=== PATIENT | female | born 1945 | race Caucasian/White ===

== ENCOUNTER 2018-12-29 08:57 | Inpatient (IN) ==
--- NOTE | 2018-12-29 09:56 | EKG Report ---
Test Performed on : 12/29/2018 09:47:07 AM Test Reason : new admission Blood Pressure : / mmHG Vent. Rate : 110 BPM Atrial Rate : 110 BPM P-R Int : 192 ms QRS Dur : 082 ms QT Int : 332 ms P-R-T Axes : 014 014 025 degrees QTc Int : 449 ms Sinus tachycardia. Anterior infarct , age undetermined Abnormal ECG No previous ECGs available Confirmed by Lobo Hameed MD ([id number]) on 12/31/2018 12:13:58 PM
--- NOTE | 2018-12-29 10:00 | Diag Imaging Result Doc PS360 ---
EXAM: CHEST-PORTABLE 12/29/2018 HISTORY: new admit TECHNIQUE: AP portable at 0951 COMMENT: The inspiration is suboptimal. There is a granuloma present in the lingula. No evidence of acute cardiac or pulmonary disease is present. There are no previous studies. IMPRESSION: No evidence of acute disease. Electronically signed by Bernardo Brennan 12/29/2018 9:58 AM
[2018-12-29 10:21] LABS: BASO# 0.05 X1000 (0.0-0.2); BASO% 0.3 % (0.0-0.8); EOS# 0.04 X1000 (0.0-0.7); EOS% 0.2 % (0.0-10.0); HEMATOCRIT 36.6 % (37.0-47.0); HEMOGLOBIN 12.4 g/dL (12.0-16.0); IMM GRAN# 0.31 X1000 (0.0-0.04); IMM GRAN% 1.7 % (0.0-0.5); LYMPH# 2.11 X1000 (1.2-3.4); LYMPH% 11.7 % (20.5-51.1); MCH 31.9 PG (27-31); MCHC 33.9 g/dL (33-37); MCV 94.1 FL (81-99); MONO# 1.07 X1000 (0.11-0.59); MPV 10.4 FL (7.4-10.4); NEUT# 14.39 X1000 (1.4-6.5); NEUT% 80.1 % (42.2-75.2); PLT 468 X1000 (130-400); RBC 3.89 XMIL (4.2-5.4); RDW 13.7 % (11.5-14.5); WBC 17.97 X1000 (4.8-10.8)
[2018-12-29 10:25] LABS: INR 0.99; PROTIME 13.8 Seconds (11.0-16.0)
[2018-12-29 10:26] LABS: PTT 26.7 Seconds (22.3-41.8)
[2018-12-29 11:03] LABS: ALB/GLOB RATIO 1.2; ALBUMIN 3.3 g/dL (3.5-5.0); CALCIUM 9.1 mg/dL (8.8-10.2); CREATININE 1.1 mg/dL (0.5-0.9); POTASSIUM 4.9 mmol/L (3.5-5.1); TOTAL BILIRUBIN 0.28 mg/dL (0.20-1.00); TOTAL PROTEIN 6.1 g/dL (6.3-8.3)
--- NOTE | 2018-12-29 12:33 | HEMO/ONC CONSULTATION ---
DATE: 12/29/2018 REASON FOR CONSULTATION: The patient is known to us in the clinic for management of gastric cancer. HISTORY OF PRESENT ILLNESS: The patient came to our clinic yesterday with complaints of severe weakness, severe nausea and no oral intake at all. She has recently had significant malignant ascites which a drain was placed. The patient was diagnosed recently with gastric cancer. She came to our clinic at the beginning of this month with abdominal pain for the last 6 to 8 weeks along with anorexia and worsening nausea. She has lost 18 pounds over the last several weeks. She is she presents with a CT scan from [facility]. She reported a mass in the stomach with noted. She saw Dr. Rahman for an EGD, which revealed a large fungating tumor occupying 50 to 75 percent of the circumference of the antrum. Biopsies were obtained and pathology revealed invasive adenocarcinoma, moderately to poorly differentiated intestinal type. She was also noted to have iron deficiency anemia and she has had 1 of 2 doses of IV iron on 12/25/2018. PAST MEDICAL HISTORY: Diabetes, hypertension, GERD, hypercholesterolemia, and gout. PAST SURGICAL HISTORY: Knee surgery. ALLERGIES: Codeine. MEDICATIONS: Omeprazole, aspirin, atorvastatin, hydrochlorothiazide, carvedilol, metformin, amlodipine, losartan, allopurinol, multivitamin, omega-3, arthritis pain relief and azelastine. SOCIAL HISTORY: She denies smoking or alcohol use. FAMILY HISTORY: Her mother had Alzheimer's. Her father had heart disease. REVIEW OF SYSTEMS: Positive for weight loss, fatigue, nausea, nocturia, and arthritis. All other review of systems negative unless mentioned in the HPI. PHYSICAL EXAMINATION: Vital Signs: Temperature 98.4 degrees, pulse rate 115, respiratory rate 22, blood pressure 155/89, O2 saturation 97% on room air. She is 5/10 abdominal pain. Eyes: Anicteric. Pupils are round, equal and symmetric. ENT: Oral mucosa normal. Cardiovascular: Normal S1, S2. No murmurs, gallops, or rubs appreciated. Respiratory: Chest clear to auscultation. Normal respiratory effort. Gastrointestinal: Abdomen is mildly distended with ascites, generally tender all over. Lymphatic: No lymphadenopathy noted. LABORATORY DATA AND DIAGNOSTICS: WBC 17.97, hemoglobin 12.4, hematocrit 36.6, platelet count 468,000. ANC 14.39. Creatinine 1.1. Chest x-ray shows no evidence of acute disease. EKG reveal sinus tachycardia. ASSESSMENT: 1. Metastatic gastric adenocarcinoma. 2. Iron deficiency anemia. 3. Malignant ascites. 4. Nausea. PLAN: The current plan is to admit the patient to the hospital to get her nausea and pain under control, to improve the patient's nutritional status and improve her deconditioning. Her nausea is most likely related to her mesenteric and omental metastasis or from increasing abdominal ascites. She does have drainage in place, continue to drain as instructed per Dr. Alaniz. We will continue to see her over the weekend. Dictated by WILFREDO Blanchard for Edmond Oh MD cc: Edmond Oh MD
[2018-12-29] MEDS: CLINIMIX E 4.25%-5% SOLUTION 1,000 ML IV SCH ×2 (12:55→22:21)
[2018-12-29] MEDS: HUMALOG SUBQ SCH ×3 (12:57→21:31)
[2018-12-29] MEDS: LOVENOX SUBQ SCH (15:55)
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
[2018-12-29 22:27] LABS: URINE SOURCE CLEAN CATCH
[2018-12-29 22:31] LABS: BILIRUBIN URINE NEGATIVE (NEGATIVE); BLOOD URINE NEGATIVE (NEGATIVE); COLOR YELLOW; GLUCOSE URINE NEGATIVE (NEGATIVE); KETONE URINE 10 mg/dL (NEGATIVE); LEUKOCYTES URINE NEGATIVE (NEGATIVE); NITRITE URINE NEGATIVE (NEGATIVE); PH URINE 5.5; PROTEIN URINE TRACE mg/dL (NEGATIVE); TURBIDITY URINE HAZY (CLEAR); UR EPITHELIAL CELLS <10 /HPF (<10); URINE BACTERIA NEGATIVE /HPF; URINE RBC <10 /HPF (<10); URINE WBC <10 /HPF (<10); UROBILINOGEN URINE NORMAL (NORMAL)
--- NOTE | 2018-12-29 23:20 | HISTORY AND PHYSICAL ---
ADDENDUM: Patient seen and examined by me [id number]. All the laboratory, vital signs and images were reviewed. This patient basically has been sent by Dr. Oh due to nausea and abdominal pain. She has a history of metastatic gastric adenocarcinoma and malignant ascites. She has a drain coming out from her abdomen. She has not been tolerating p.o. for the past couple of weeks, and she feels weak. I think yesterday she had a popsicle and today she was able to drink a little bit of fluid and Jell-O. We will continue to monitor this patient on the floor. Vital signs are stable, slightly tachycardic in the 100s. Her white blood cell count is elevated at 17.9, but I do not have any source of infection and she is not having fever or chills. She is completely alert and oriented x3. The plan is to try to control her pain. Her abdomen is soft. It is not tender right now and she is not having nausea or vomiting right now. Once this is controlled, probably we can go ahead and start giving her some ice chips and some fluid to see if she tolerates that. I had a conversation with the patient at the bedside. Her granddaughter also was there. We talked about the resuscitation status, and she decided to be a Full Code, so we will respect her wishes. cc: Alan Umanzor MD
[2018-12-30] MEDS: PHENERGAN PO PRN (01:27)
[2018-12-30] MEDS: NS 1,000 ML IV SCH ×2 (02:18→21:37)
[2018-12-30] MEDS ORDERED: MORPHINE IV ONE (05:31)
[2018-12-30 06:57] LABS: BASO% 0.2 % (0.0-0.8); EOS% 0.9 % (0.0-10.0); HEMATOCRIT 33.8 % (37.0-47.0); HEMOGLOBIN 11.5 g/dL (12.0-16.0); IMM GRAN% 2.3 % (0.0-0.5); LYMPH% 17.7 % (20.5-51.1); MCV 94.2 FL (81-99); MONO% 8.4 % (1.7-9.3); MPV 10.6 FL (7.4-10.4); NEUT# 12.58 X1000 (1.4-6.5); NEUT% 70.5 % (42.2-75.2); PLT 433 X1000 (130-400); RBC 3.59 XMIL (4.2-5.4); WBC 17.84 X1000 (4.8-10.8)
[2018-12-30 06:58] LABS: BASO# 0.04 X1000 (0.0-0.2); EOS# 0.16 X1000 (0.0-0.7); IMM GRAN# 0.41 X1000 (0.0-0.04); LYMPH# 3.15 X1000 (1.2-3.4)
[2018-12-30 07:13] LABS: HEMOGLOBIN A1C 5.3 % (4.8-6.0)
[2018-12-30 07:16] LABS: ESTIMATED GFR > 60
[2018-12-30 07:19] LABS: AGAP 12; ALB/GLOB RATIO 1.3; ALBUMIN 2.9 g/dL (3.5-5.0); ALKALINE PHOSPHATASE 62 U/L (32-104); BUN 52 mg/dL (8-22); CALCIUM 8.6 mg/dL (8.8-10.2); CHLORIDE 96 mmol/L (98-107); COSMO 281; CREATININE 0.9 mg/dL (0.5-0.9); GLUCOSE 137 mg/dL (70-104); POTASSIUM 4.4 mmol/L (3.5-5.1); SODIUM 132 mmol/L (136-145); TCO2 24 mmol/L (25-35); TOTAL BILIRUBIN 0.21 mg/dL (0.20-1.00); TOTAL PROTEIN 5.2 g/dL (6.3-8.3)
[2018-12-30 07:20] LABS: GOT 21 U/L (10-30); GPT 11 U/L (10-36)
[2018-12-30] MEDS: CLINIMIX E 4.25%-5% SOLUTION 1,000 ML IV SCH ×2 (09:21→19:01)
[2018-12-30] MEDS: LOVENOX SUBQ SCH (09:21)
[2018-12-30] MEDS: HUMALOG SUBQ SCH ×4 (09:26→21:37)
--- NOTE | 2018-12-30 10:21 | GENERAL SURGERY CONSULTATION ---
DATE: 12/29/2018 HISTORY OF PRESENT ILLNESS: This is a 73-year-old female patient Dr. Moraess and Dr. Rahman who was found to have metastatic gastric cancer. She has developed ascites, had a peritoneal drain placed, but she elected to undergo palliative chemotherapy. Unfortunately, she has had intolerance to oral intake, nausea, vomiting, although she continues to have bowel function and not obstructed noted on EGD. She denies any GI bleeding. MEDICAL HISTORY: Diabetes, hypertension, gastroesophageal reflux, hyperlipidemia, gout. SURGICAL HISTORY: She has had knee operation but no abdominal surgery. SOCIAL HISTORY: No tobacco, alcohol, or drugs. She has an attentive family. REVIEW OF SYSTEMS: Ten point negative. FAMILY HISTORY: Reviewed. Significant for coronary disease and Alzheimer's PHYSICAL EXAMINATION: Vital Signs: No fever. Pulse is in the low 100s. Blood pressure 126/81. Oxygen saturation is 94%. General: She is alert, no acute distress. HEENT: No scleral icterus. No cervical mass. Cardiovascular: Normal rate. Pulmonary: No increased work of breathing. Abdomen: Soft, nontender, nondistended. There is a right upper quadrant peritoneal drain. Psychiatric: Appropriate affect. Neurologic: No gross deficits. Peripheral vascular: No lower extremity edema. Lymphatic: No cervical, axillary or inguinal adenopathy. LABORATORY DATA: White count 17, hematocrit 36, creatinine is 1.1. Her albumin is 3.3. LFTs are normal. Glucose 130, potassium 4.9. ASSESSMENT AND PLAN: A 73-year-old female who has malnourishment related to intolerance of oral intake related to a gastric tumor. She does have omental nodules noted consistent with metastatic disease. She also had malignant ascites that was drained and has a drain in place. This is a CT- guided. Dr. Oh has asked me to discuss with the patient a feeding jejunostomy tube. We discussed the pros and cons of this. The risks and benefits including bleeding, infection, leak from the tube, malfunction and intolerance of tube feeds. She understands all this. We discussed port placement. We discussed risk of bleeding, infection, damage to surrounding structures including the vein and the artery or pneumothorax, malfunction of the catheter. She understands all this and does consent. She has peripheral nutrition going, we will hydrate her, correct her electrolytes and plan for jejunostomy feeding tube placement as well as port placement on Tuesday. cc: David Alaniz MD
[2018-12-30] MEDS: MORPHINE IV PRN (19:05)
--- NOTE | 2018-12-30 19:56 | PROGRESS NOTE ---
DATE: 12/30/2018 SUBJECTIVE: This patient is lying comfortably in bed. She is complaining of abdominal discomfort. She is tolerating a little bit of liquid. She is not complaining of nausea today. Surgery Department will place a feeding jejunostomy tube and Port-A-Cath this coming Tuesday. We will monitor. OBJECTIVE: Vital Signs: Temperature 97.5 degrees, pulse 117, respiratory rate 20, blood pressure 127/78, oxygen saturation 96% on room air. HEENT: Head normocephalic, no trauma. PERRLA. Neck: Supple. No JVD. No masses. Central trachea. Chest: Clear to auscultation. No wheezing. No rales. Abdomen: Soft, distended. Positive bowel sounds. Generalized tenderness to palpation. No signs of peritoneal irritation. She has a drain coming out from the right side. Neurological: The patient is alert and oriented x3. No focal deficits. LABORATORY: WBCs 17.8, hemoglobin 11.5, hematocrit 33.8, platelets 433. Sodium 132, potassium 4.4, chloride 96, bicarbonate 24, BUN 52, creatinine 0.9, glucose 137, calcium 8.6, albumin 2.9. ASSESSMENT AND PLAN: 1. Metastatic gastric adenocarcinoma. Will continue following the recommendations of the Hematology/Oncology Department. Will continue with same management. She seems to be a little bit better compared with yesterday. The plan is to put in a feeding jejunostomy tube and a Port-A-Cath this coming Tuesday. 2. Intractable nausea, vomiting and decreased appetite, likely due to her current condition, gastric cancer with metastasis. We anticipate a gastric jejunostomy tube this Tuesday, and the Port-A-Cath. 3. Anemia, better. Hematology-Oncology Department following. 4. Generalized weakness and physical deconditioning. Aware. We will start her working with physical therapy. 5. Hypertension, stable. 6. Diabetes. Continue with pattern blood sugars and sliding scale insulin. 7. Arthritis. She has been taken off her arthritic medication. 8. Hyperlipidemia. Continue with fish oil. 9. Gastroesophageal reflux disease. Aware Continue with same management. 10. History of kidney and bladder infections. She is not having any urinary complaints at this moment, but I will get a urine culture. cc: Alan Umanzor MD
--- NOTE | 2018-12-30 20:40 | GENERAL SURGERY PROGRESS NOTE ---
DATE: 12/30/2018 SUBJECTIVE: No issues. Pain is reasonably controlled. Low-grade tachycardia. No fevers. OBJECTIVE: Blood pressure 127/78. General: She is alert. Cardiovascular: Normal rate. Abdomen is soft, nontender, nondistended. LABORATORY DATA: White count remains elevated at 17. Hematocrit is down to 33. Creatinine is 0.9. ASSESSMENT AND PLAN: A 73-year-old female with metastatic gastric cancer, intolerance to oral intake. I have her on the schedule for jejunostomy tube and port placement on Tuesday. We will continue to follow her through the weekend. cc: David Alaniz MD
[2018-12-31] MEDS: MORPHINE IV PRN ×3 (00:22→21:20)
[2018-12-31] MEDS: NS 1,000 ML IV SCH (02:25)
[2018-12-31] MEDS: CLINIMIX E 4.25%-5% SOLUTION 1,000 ML IV SCH ×3 (02:25→22:49)
[2018-12-31] MEDS: HUMALOG SUBQ SCH ×4 (06:39→22:09)
[2018-12-31 06:42] LABS: BASO# 0.05 X1000 (0.0-0.2); BASO% 0.3 % (0.0-0.8); EOS% 1.1 % (0.0-10.0); HEMATOCRIT 35.9 % (37.0-47.0); HEMOGLOBIN 12.2 g/dL (12.0-16.0); IMM GRAN# 0.82 X1000 (0.0-0.04); IMM GRAN% 4.4 % (0.0-0.5); LYMPH% 17.2 % (20.5-51.1); MCH 31.9 PG (27-31); MCV 93.7 FL (81-99); MONO# 1.69 X1000 (0.11-0.59); MONO% 9.1 % (1.7-9.3); MPV 10.6 FL (7.4-10.4); NEUT# 12.63 X1000 (1.4-6.5); NEUT% 67.9 % (42.2-75.2); PLT 443 X1000 (130-400); RBC 3.83 XMIL (4.2-5.4); RDW 13.9 % (11.5-14.5); WBC 18.59 X1000 (4.8-10.8)
[2018-12-31 07:40] LABS: AGAP 15; BUN 51 mg/dL (8-22); CALCIUM 8.8 mg/dL (8.8-10.2); CHLORIDE 99 mmol/L (98-107); COSMO 285; CREATININE 0.7 mg/dL (0.5-0.9); ESTIMATED GFR > 60; GLUCOSE 112 mg/dL (70-104); SODIUM 135 mmol/L (136-145); TCO2 21 mmol/L (25-35)
[2018-12-31] MEDS: LOVENOX SUBQ SCH (11:22)
[2018-12-31] MEDS: ZOFRAN IV PRN ×2 (11:29→21:20)
--- NOTE | 2018-12-31 12:21 | PROGRESS NOTE ---
DATE: 12/31/2018 SUBJECTIVE: The patient is lying comfortably in bed. She is feeling better today. Hopefully tomorrow she will have a procedure done, a feeding jejunostomy tube and Port-A-Cath will be placed. OBJECTIVE: Vital Signs: Temperature 97.5 degrees, pulse 105, respiratory rate 20, blood pressure 143/83, oxygen saturation 97% on room air. HEENT: Head normocephalic, no trauma. PERRLA. Neck: Supple. No JVD. No masses. Central trachea. Chest: Clear to auscultation. No wheezing. No rales. Abdomen: Soft, distended, positive bowel sounds. Generalized tenderness to palpation. No signs of peritoneal irritation. She has a drain coming out from the right side. Neurological: The patient is alert. She is oriented x3. No focal deficits. LABORATORY: WBC 18.5, hemoglobin 12.2, hematocrit 35.9, platelets 443,000. Sodium 135, potassium 5, chloride 99, bicarbonate 21, BUN 51, creatinine 0.7 glucose 112, calcium 8.8. ASSESSMENT AND PLAN: 1. Metastatic gastric adenocarcinoma, we will continue following the recommendations of the hematology/oncology department, continue with the same management. Hopefully tomorrow she will go for surgery. We were trying to place a feeding jejunostomy tube and a Port-A-Cath. 2. Intractable nausea, vomiting and decreased appetite, likely due to her current condition, gastric cancer with metastasis. She is tolerating p.o. She is not having nausea today. No diarrhea either. 3. Anemia, better, hematology oncology department following. 4. Generalized weakness and physical deconditioning. Aware. Continue with the same management. Physical therapy has been consulted. 5. Arthritis this patient has been taking of her arthritic medications. 6. Hyperlipidemia continue with fish oil. 7. Diabetes, continue patterned blood sugar and sliding scale insulin. 8. Gastroesophageal reflux disease. Continue with the same management. 9. History of kidney and bladder infection. She is not having any urinary complaints at this moment and the urine culture is negative so far. cc: Alan Umanzor MD
--- NOTE | 2018-12-31 15:09 | GENERAL SURGERY PROGRESS NOTE ---
DATE: 12/31/2018 SUBJECTIVE: She is feeling better. No fevers. Her tachycardia has improved now down the 90s. Blood pressure been okay. General: She is alert. Abdomen: Soft. Integument: Is warm, dry. Cardiovascular: Normal rate. LAB: White counts remains stable. Hematocrit 35, creatinine 0.7. Urine culture is pending but urinalysis was clear. Chest x-ray showed no pneumonia. ASSESSMENT/PLAN: 73-year-old female metastatic gastric cancer and unable to tolerate p.o. I have her on schedule tomorrow for jejunostomy tube as well as port placement. Discussed extensively this with patient. She understands and consents. Will make her NPO at midnight, otherwise clear liquids as tolerated. cc: David Alaniz MD
--- NOTE | 2018-12-31 15:41 | HEMO/ONC PROGRESS NOTE ---
DATE: 12/31/2018 SUBJECTIVE: Patient reports that she is feeling a little bit stronger. She is currently on Clinimix and IV fluids. Her abdominal swelling is not getting any worse. She has seen Dr. Alaniz with plans for a Port-A-Cath and possibly J-tube on Tuesday. No other complaints today. OBJECTIVE: Patient is alert and oriented x 3. Vital Signs: Stable. Eyes: EOMI. PERRLA. Anicteric. Mucous membranes are mildly dry. Cardiac: Regular rate and rhythm. Normal S1, S2. Chest: Clear to auscultation. Abdomen: Slightly protuberant with minimal ascites. Extremities: No cyanosis or clubbing. Neurologic: Alert and oriented x 3. LABS: White count 17.8, hemoglobin 11.5, platelets 43,000. ANC 12.5, BUN 52, creatinine 0.9. LFTs are normal. ASSESSMENT: 1. Metastatic gastric adenocarcinoma. 2. Iron deficiency anemia, status post IV iron. 3. Malignant ascites. Status post drainage catheter placement. 4. Persistent nausea and weight loss. 5. DVT prophylaxis. PLAN: 1. Continue current management. Continue Clinimix. Hopefully, she will get a J-tube soon and we will change this to tube feeds. Continue nausea medicines around the clock. Once she gets her nutrition stronger, she would like to pursue chemotherapy. Physical therapy has been consulted. Out of bed t.i.d. 2. Leukocytosis and noncompliant. Her leukocytosis most likely reactive to her malignancy. No obvious evidence of infection at this time. No reason to give her any antibiotics. Simply continue to monitor. She is on cc: Edmond Oh MD [facility]
[2019-01-01] MEDS: PHENERGAN PO PRN (00:08)
[2019-01-01] MEDS: ZOFRAN IV PRN ×4 (05:24→21:46)
[2019-01-01] MEDS: MORPHINE IV PRN ×5 (05:24→21:46)
[2019-01-01] MEDS: HUMALOG SUBQ SCH ×4 (06:48→21:48)
[2019-01-01 07:10] LABS: BASO# 0.13 X1000 (0.0-0.2); BASO% 0.6 % (0.0-0.8); EOS# 0.06 X1000 (0.0-0.7); EOS% 0.3 % (0.0-10.0); HEMATOCRIT 36.3 % (37.0-47.0); HEMOGLOBIN 12.2 g/dL (12.0-16.0); IMM GRAN# 0.97 X1000 (0.0-0.04); IMM GRAN% 4.8 % (0.0-0.5); LYMPH# 2.82 X1000 (1.2-3.4); LYMPH% 13.8 % (20.5-51.1); MCH 32.3 PG (27-31); MCHC 33.6 g/dL (33-37); MONO# 1.63 X1000 (0.11-0.59); MPV 10.8 FL (7.4-10.4); NEUT# 14.77 X1000 (1.4-6.5); NEUT% 72.5 % (42.2-75.2); PLT 387 X1000 (130-400); RBC 3.78 XMIL (4.2-5.4); RDW 14.5 % (11.5-14.5); WBC 20.38 X1000 (4.8-10.8)
[2019-01-01 07:36] LABS: LYMPHS 14 % (21-51); MONO 9 % (1-9); SEGS 77 % (42-75)
[2019-01-01 07:39] LABS: AGAP 16; BUN 54 mg/dL (8-22); CHLORIDE 97 mmol/L (98-107); COSMO 273; CREATININE 0.9 mg/dL (0.5-0.9); ESTIMATED GFR > 60; GLUCOSE 149 mg/dL (70-104); POTASSIUM 6.3 mmol/L (3.5-5.1); SODIUM 127 mmol/L (136-145); TCO2 14 mmol/L (25-35)
[2019-01-01] MEDS ORDERED: CALCIUM GLUCONATE 4.65 MEQ in NS 50 ML IV ONE (07:45)
[2019-01-01] MEDS ORDERED: D50W SYRINGE IV ONE (07:45)
[2019-01-01] MEDS ORDERED: HUMULIN R IV ONE (07:45)
[2019-01-01] MEDS ORDERED: ALBUTEROL 0.5% INH CONC FOR HYPERKALEMIA INH ONE (07:46)
[2019-01-01 09:16] LABS: ESTIMATED GFR > 60
[2019-01-01 09:29] LABS: AGAP 15; BUN 53 mg/dL (8-22); CALCIUM 8.1 mg/dL (8.8-10.2); CHLORIDE 96 mmol/L (98-107); COSMO 274; CREATININE 0.8 mg/dL (0.5-0.9); GLUCOSE 143 mg/dL (70-104); SODIUM 128 mmol/L (136-145); TCO2 17 mmol/L (25-35)
[2019-01-01] MEDS: NS 1,000 ML IV SCH ×3 (09:48→18:03)
[2019-01-01] MEDS: LOVENOX SUBQ SCH (11:30)
[2019-01-01] MEDS: CLINIMIX E 4.25%-5% SOLUTION 1,000 ML IV SCH (11:31)
--- NOTE | 2019-01-01 12:20 | GENERAL SURGERY PROGRESS NOTE ---
DATE: 01/01/2019 SUBJECTIVE: No events overnight. Feeling okay. No fevers. Low-grade tachycardia which has been stable. OBJECTIVE: Blood pressure 105/76, oxygen saturation is 93%. In general, she is alert. Abdomen is soft. Integument is warm and dry. LABORATORIES: I have reviewed her laboratories which have just resulted. White count is up to 20, hematocrit is 36. Her potassium is 6.3 with creatinine 0.9. ASSESSMENT AND PLAN: 1. This is a 73-year-old female with nausea/vomiting related to metastatic gastric cancer. She wants to undergo palliative chemotherapy. As such, she needs enteral access as well as venous access. We have had extensive discussion regarding her risks of bleeding, infection, malfunction of both of these issues, perforation, and other cardiopulmonary complications. 2. I had her on the schedule for today, but given her hyperkalemia, we will need to correct this prior to surgery. 3. She had a persistent leukocytosis, although I do not see any source of infection based off of her clinical exam. 4. We will see how her electrolytes correct today and plan for surgery around lunchtime. cc: David Alaniz MD
--- NOTE | 2019-01-01 16:31 | PROGRESS NOTE ---
DATE: 01/01/2019 SUBJECTIVE: Patient is resting comfortably in bed. No big changes compared with yesterday, but her potassium level was high. She was scheduled today to get a feeding jejunostomy and a Port-A- Cath, but is going to be rescheduled because of this high potassium level. It has been normal for the past 3 days, but today is higher. It has been treated. We will repeat laboratory again at 2 p.m. It is pending at this moment. OBJECTIVE: Vital signs: Temperature 97.6 degrees, pulse 110, respiratory rate 18, blood pressure 151/88, oxygen saturation 97% on room air. HEENT: Head normocephalic, no trauma. PERRLA. Neck: Supple. No JVD. No masses. Central trachea. Chest: Clear to auscultation. No wheezing. No rales. Abdomen: Soft, distended. Positive bowel sounds. Generalized tenderness to palpation. No signs of peritoneal irritation. She has a drain coming out from the right side. Neurological: Alert and oriented x3. No focal deficits. LABORATORY: WBC 20.3, hemoglobin 12.2, hematocrit 36.3, platelets 387,000. Sodium 128, potassium 6, chloride 96, bicarbonate 17, BUN 53, creatinine 0.8, glucose 143, calcium 8.1. ASSESSMENT AND PLAN: 1. Metastatic gastric adenocarcinoma. We will continue to follow. We will continue following the recommendations of Hematology/Oncology department. Continue with same management. Hopefully tomorrow, we will get the feeding jejunostomy tube and the Port-A-Cath placed. 2. Intractable nausea, vomiting, and decreased appetite. Likely due to her current condition, gastric cancer with metastasis. She is tolerating some liquids, but she is having some nausea. 3. Anemia. Hematology/Oncology following the patient. 4. Generalized weakness and physical deconditioning. Aware. Continue with same management. 5. Hyperkalemia. Treated in the morning. Pending new results at this moment and also 8 p.m. 6. Arthritis. This patient has been taking medication for this, but it has been removed from her medications. 7. Hyperlipidemia. Continue fish oil. 8. Diabetes. Continue with pattern of blood sugar and sliding scale insulin. 9. Gastroesophageal reflux disease. Continue with the same management. 10. History of kidney and bladder infection. No urinary complaints at this moment, and the urine culture is negative. 11. Leukocytosis. I do not have any source of infection. I will probably discuss these with Hematology/Oncology department which is following this patient. cc: Alan Umanzor MD
[2019-01-01] MEDS ORDERED: KAYEXALATE PO ONE (17:11)
--- NOTE | 2019-01-01 18:00 | HEMO/ONC PROGRESS NOTE ---
DATE: 01/01/2019 HISTORY OF PRESENT ILLNESS/CHIEF COMPLAINT: The patient states she had a good weekend. She was significantly nauseated which has slowly been resolving. She states it is pretty mild today. She was scheduled to get a feeding jejunostomy and a Port-A-Cath today, but it has to be rescheduled due to her high potassium level. The patient had no other complaints other than nausea today. OBJECTIVE: Vital Signs: Temperature 97.8 degrees, pulse rate 114, respiratory rate 20, blood pressure 142/95, O2 saturation 97% on room air. She has 8/10 abdominal pain. Her urine culture over the weekend grew no growth. General: Elderly appearing female in no acute distress. Respiratory: Lungs are clear to auscultation. Normal respiratory effort. Abdomen: Soft, slightly distended. Positive bowel sounds. Tender to palpation. Abdominal gastric drain noted. Neurological: Alert and oriented x3. No focal deficits. LABORATORY DATA: WBC 20.38, hemoglobin 12.2, hematocrit 36.3, platelet count 387,000, ANC 14.77, potassium 6.3 at 6:30 a.m., 5.0 at 2 p.m. ASSESSMENT: 1. Metastatic gastric adenocarcinoma with intractable nausea and vomiting. 2. Iron deficiency anemia. 3. Malignant ascites. PLAN: Currently the patient is waiting on feeding jejunostomy and Port-A-Cath. It should be rescheduled soon as soon as her potassium level is corrected. We will contact dietitian regarding the potassium and her Clinimix as we believe that is where the high potassium was coming from. We are going to order 1 dose of Kayexalate to lower the potassium. We will continue to follow closely. Dictated by WILFREDO Blanchard for Edmond Oh MD cc: Edmond Oh MD [facility]
[2019-01-01 21:29] LABS: CALCIUM 8.1 mg/dL (8.8-10.2); POTASSIUM 5.6 mmol/L (3.5-5.1)
[2019-01-02] MEDS: ZOFRAN IV PRN ×4 (03:01→23:03)
[2019-01-02] MEDS: MORPHINE IV PRN ×4 (03:06→23:03)
[2019-01-02] MEDS: HUMALOG SUBQ SCH ×4 (07:07→21:35)
[2019-01-02] MEDS: NS 1,000 ML IV SCH (07:49)
[2019-01-02 07:59] LABS: BASO# 0.08 X1000 (0.0-0.2); BASO% 0.4 % (0.0-0.8); EOS# 0.02 X1000 (0.0-0.7); EOS% 0.1 % (0.0-10.0); HEMATOCRIT 36.7 % (37.0-47.0); HEMOGLOBIN 12.5 g/dL (12.0-16.0); IMM GRAN# 0.95 X1000 (0.0-0.04); IMM GRAN% 4.2 % (0.0-0.5); LYMPH# 2.62 X1000 (1.2-3.4); LYMPH% 11.7 % (20.5-51.1); MCH 31.5 PG (27-31); MCHC 34.1 g/dL (33-37); MCV 92.4 FL (81-99); MONO# 1.61 X1000 (0.11-0.59); MONO% 7.2 % (1.7-9.3); MPV 11.1 FL (7.4-10.4); NEUT# 17.18 X1000 (1.4-6.5); NEUT% 76.4 % (42.2-75.2); PLT 499 X1000 (130-400); RBC 3.97 XMIL (4.2-5.4); RDW 14.3 % (11.5-14.5); WBC 22.46 X1000 (4.8-10.8)
[2019-01-02 08:18] LABS: LYMPHS 4 % (21-51); MONO 8 % (1-9); SEGS 80 % (42-75)
[2019-01-02 08:21] LABS: CALCIUM 8.7 mg/dL (8.8-10.2); POTASSIUM 5.6 mmol/L (3.5-5.1)
[2019-01-02] MEDS ORDERED: KAYEXALATE PO ONE ×2 (08:31→12:03)
[2019-01-02] MEDS ORDERED: ALBUTEROL 0.5% INH CONC FOR HYPERKALEMIA INH ONE (09:12)
[2019-01-02] MEDS ORDERED: D50W SYRINGE IV ONE ×2 (09:13→16:05)
[2019-01-02] MEDS ORDERED: HUMULIN R IV ONE ×2 (09:13→16:04)
[2019-01-02] MEDS ORDERED: CALCIUM GLUCONATE 4.65 MEQ in NS 50 ML IV ONE (09:14)
[2019-01-02] MEDS: LOVENOX SUBQ SCH (12:18)
--- NOTE | 2019-01-02 13:34 | HEMO/ONC PROGRESS NOTE ---
DATE: 01/02/2019 HISTORY OF PRESENT ILLNESS/CHIEF COMPLAINT: The patient states she had a very good night. She is comfortable in bed. She is currently n.p.o. in hopes of going to surgery today for her jejunostomy and Port-A-Cath. Her potassium level is still pending at this time. She states her nausea is better than yesterday and that she feels slightly better than she did yesterday. She has no other complaints today. OBJECTIVE: Vital Signs: Temperature 97.9 degrees, pulse rate 115, respiratory rate 18, blood pressure 122/90, O2 saturation 95% on room air. She is in 5/10 abdominal pain. General: She is an ill-appearing, elderly female in no acute distress. Respiratory: Clear to auscultation. Normal respiratory effort. Cardiovascular: Normal S1, S2. No murmurs, rubs, or gallops appreciated. Abdomen: Soft, slightly distended. Tender to palpation. Drain noted on the right side with some bruising. Neurological: A and O x3. No focal motor deficits. Laboratory: WBCs 22.46, hemoglobin 12.5, hematocrit 36.7, platelet count 491,000, ANC 17.18. Sodium 129, potassium 5.6, creatinine 1.0. ASSESSMENT: 1. Metastatic gastric adenocarcinoma with intractable nausea and vomiting. 2. Iron deficiency anemia. 3. Malignant ascites. 4. Generalized weakness and physical deconditioning. 5. Hyperkalemia. PLAN: The patient continues to wait on the placement of a feeding jejunostomy tube, and Port-A-Cath per surgery. We are monitoring her potassium level until it is safe to do the operation. We added one more dose of Kayexalate to the patient this morning. We should redraw another potassium this afternoon to see if it has improved. The patient's abdominal malignant ascites is currently being drained per protocol per her abdominal drain. The patient is tolerating this well. It is not bothering her. She states her nausea is being controlled with medication. Continue to provide the patient with adequate nutrition and out of bed as tolerated. We continue to follow. Dictated by WILFREDO Blanchard for Edmond Oh MD cc: Edmond Oh MD [facility]
[2019-01-02 14:54] LABS: CALCIUM 8.6 mg/dL (8.8-10.2); POTASSIUM 5.7 mmol/L (3.5-5.1)
[2019-01-02] MEDS: 1/2 NS 1,000 ML IV SCH (15:32)
--- NOTE | 2019-01-02 16:26 | PROGRESS NOTE ---
DATE: 01/02/2019 SUBJECTIVE: The patient resting comfortably in bed. She had an episode of vomiting at around 3 a.m. today. Her potassium level is again elevated even though the Clinimix has been stopped yesterday, I will switch the NS to half NS I will treat the high potassium, pending lab work that has been already done at 2 p.m. OBJECTIVE: Vital Signs: Temperature 97.8 degrees, pulse 105, respiratory rate 16, blood pressure 110/76 oxygen saturation 96 on room air. HEENT: Head normocephalic. No trauma. PERRLA. Neck: Supple. No JVD. No masses. Central trachea. Chest: Clear to auscultation. No wheezing. No rales. Abdomen: Soft, a little bit distended. Positive bowel sounds. Generalized tenderness to palpation. No signs of peritoneal irritation. She has a drain coming out from the right side of the abdomen. Neurological: Alert and oriented x3. No focal deficit but generalized weakness. LABORATORY: WBC 22.4, hemoglobin 12.5, hematocrit 36.7, platelets 499,000. Sodium 129, potassium 5.6, chloride 96, bicarbonate 21, BUN 51, creatinine 1, glucose 125, calcium 8.7. ASSESSMENT AND PLAN: 1. Metastatic gastric adenocarcinoma, we will continue to follow. The plan is to put a Port-A- Cath and also place a feeding jejunostomy tube tomorrow if the potassium level is stable. 2. Intractable nausea, vomiting and decreased appetite, likely due to her current condition, gastric cancer with metastasis. She is tolerating some fluids, but she is still having some nausea and vomiting. 3. Anemia. hematology/oncology following this patient. 4. Generalized weakness and physical deconditioning. Aware. Continue with same management. 5. Hyperkalemia. I treated the hyperkalemia this morning. I will wait for the new results at 2 p.m. and I will recheck it again at 8 p.m. 6. Hyperlipidemia, continue fish oil. 7. Diabetes continue patterned blood sugar and sliding scale insulin. 8. Gastroesophageal reflux disease. Continue with the same management. 9. History of kidney and bladder infection, no urinary symptoms at this moment. Urine culture is negative. 10. Leukocytosis. I do not have any source of infection. This is likely reactive. Hematology oncology following. cc: Alan Umanzor MD
[2019-01-02] MEDS ORDERED: LACTULOSE PO ONE (17:31)
[2019-01-02 20:20] LABS: CALCIUM 8.2 mg/dL (8.8-10.2); CREATININE 1.1 mg/dL (0.5-0.9)
[2019-01-02 20:21] LABS: ALBUMIN 2.3 g/dL (3.5-5.0); CALCIUM 8.4 mg/dL (8.8-10.2); PHOSPHORUS 4.7 mg/dL (2.7-4.5); POTASSIUM 4.9 mmol/L (3.5-5.1)
--- NOTE | 2019-01-02 20:44 | GENERAL SURGERY PROGRESS NOTE ---
DATE: 01/02/2019 SUBJECTIVE: She remains hyperkalemic. Otherwise, she feels okay. No fevers. No tachycardia. Blood pressure 110/76. General: She is alert. Abdomen: Is soft. Integument: Warm and dry. LABORATORY DATA: White count remains elevated at 22, hematocrit 26, potassium this morning is 5.6, it is actually up to 5.7 this afternoon. Sodium is low at 129. ASSESSMENT/PLAN: A 73-year-old female with metastatic gastric cancer. We have had to postpone her jejunostomy tube yet another day for hyperkalemia. I have her on the schedule for tomorrow. Leukocytosis felt to be malignancy related as she has no clinical signs of infection. We will continue to follow along. Tentatively plan for port and jejunostomy tube placed tomorrow if her electrolytes are better. We have held her Clinimix. cc: David Alaniz MD
--- NOTE | 2019-01-02 21:17 | NEPHROLOGY CONSULTATION ---
DATE: 01/02/2019 REASON FOR CONSULTATION: Hyperkalemia and hyponatremia. HISTORY OF PRESENT ILLNESS: Ms. Duque is a 73-year-old white female who has been in the hospital since the with intractable nausea, vomiting, and poor intake. She has a history of metastatic gastric adenocarcinoma as well as other problems including diabetes, hypertension, arthritis, hyperlipidemia etc. Multiple bladder infections in the past. She was admitted and treated with volume resuscitation. Her initial laboratory data had elevated BUN to creatinine ratio but normal potassium and sodium. As she has been treated with normal saline, she has developed hyperkalemia and hyponatremia. We were asked to assist with management of these problems. She has been treated with insulin D50, albuterol, calcium etc. for management of her potassium. PAST MEDICAL HISTORY: As above. CURRENT MEDICATIONS: Include insulin, sodium chloride, ondansetron, promethazine, morphine, albuterol. ALLERGIES: Codeine. Social history family history, review of systems otherwise noncontributory. PHYSICAL EXAMINATION: Vital Signs: Blood pressure 114/71, heart rate 111, respirations 20, afebrile. General: No acute distress. Skin: Warm and dry. Conjunctivae are pink. Neck: Neck veins are not distended. Heart: Regular. Lungs: Equal. Abdomen: Soft. Normal bowel sounds. Extremities: No edema, clubbing or cyanosis. IMPRESSION: Hyperkalemia and hyponatremia. Etiology is not obvious. Type 4 renal tubular acidosis pattern. Perhaps related to enoxaparin so I will discontinue this medication. Check urine potassium management and sodium management. Continue normal saline. No other changes. cc: MD LOIS Hwang
[2019-01-02 21:18] LABS: URINE SOURCE CLEAN CATCH
[2019-01-02 21:24] LABS: BILIRUBIN URINE NEGATIVE (NEGATIVE); BLOOD URINE NEGATIVE (NEGATIVE); COLOR YELLOW; GLUCOSE URINE 200 mg/dL (NEGATIVE); KETONE URINE NEGATIVE (NEGATIVE); LEUKOCYTES URINE LARGE (NEGATIVE); NITRITE URINE NEGATIVE (NEGATIVE); PROTEIN URINE 50 mg/dL (NEGATIVE); SP GRAVITY URINE 1.029; TURBIDITY URINE HAZY (CLEAR); UROBILINOGEN URINE NORMAL (NORMAL)
[2019-01-02 21:27] LABS: UR EPITHELIAL CELLS >10 /HPF (<10); URINE BACTERIA 1+ /HPF; URINE RBC <10 /HPF (<10); URINE WBC TNTC /HPF (<10)
[2019-01-03] MEDS: ZOFRAN IV PRN ×2 (01:04→07:03)
[2019-01-03] MEDS: PHENERGAN PO PRN (01:06)
[2019-01-03] MEDS: PHENERGAN PR PRN (01:25)
[2019-01-03] MEDS: MORPHINE IV PRN ×6 (01:32→22:32)
[2019-01-03] MEDS: 1/2 NS 1,000 ML IV SCH ×2 (04:21→22:29)
[2019-01-03] MEDS: HUMALOG SUBQ SCH ×4 (06:43→21:05)
[2019-01-03 07:11] LABS: BASO# 0.05 X1000 (0.0-0.2); BASO% 0.2 % (0.0-0.8); EOS# 0.11 X1000 (0.0-0.7); EOS% 0.4 % (0.0-10.0); HEMATOCRIT 37.8 % (37.0-47.0); HEMOGLOBIN 12.9 g/dL (12.0-16.0); IMM GRAN# 0.56 X1000 (0.0-0.04); IMM GRAN% 2.3 % (0.0-0.5); LYMPH# 2.18 X1000 (1.2-3.4); LYMPH% 8.9 % (20.5-51.1); MCH 31.8 PG (27-31); MCHC 34.1 g/dL (33-37); MCV 93.1 FL (81-99); MONO# 1.42 X1000 (0.11-0.59); MONO% 5.8 % (1.7-9.3); MPV 11.3 FL (7.4-10.4); NEUT# 20.13 X1000 (1.4-6.5); NEUT% 82.4 % (42.2-75.2); PLT 360 X1000 (130-400); RBC 4.06 XMIL (4.2-5.4); RDW 14.4 % (11.5-14.5); WBC 24.45 X1000 (4.8-10.8)
[2019-01-03 07:22] LABS: UR CREAT RANDOM 144.8 mg/dL (11-20); UR PROT RANDOM 50.8 mg/dL; UR SODIUM < 10 mmoll
[2019-01-03 07:22] LABS: ALBUMIN 2.3 g/dL (3.5-5.0); CALCIUM 7.9 mg/dL (8.8-10.2); CREATININE 1.2 mg/dL (0.5-0.9); TOTAL BILIRUBIN 0.23 mg/dL (0.20-1.00); TOTAL PROTEIN 4.5 g/dL (6.3-8.3)
[2019-01-03] MEDS ORDERED: DIPRIVAN 1% ONE (10:17)
[2019-01-03] MEDS ORDERED: MARCAINE 0.25% PF/EPI 1:200,000 ONE (10:49)
[2019-01-03] MEDS ORDERED: XYLOCAINE 1% ONE (10:50)
[2019-01-03] MEDS ORDERED: NS 250 ML ONE (10:50)
[2019-01-03] MEDS ORDERED: INVANZ 1 GM/NS 1 GM/50 ML IVPB IV ONE (11:00)
[2019-01-03] MEDS ORDERED: ROBINUL ONE (12:01)
[2019-01-03] MEDS ORDERED: NEOSTIGMINE ONE ×2 (12:01→12:02)
[2019-01-03] MEDS ORDERED: ZEMURON ONE (12:03)
[2019-01-03] MEDS ORDERED: QUELICIN (DOSE) ONE (12:04)
[2019-01-03] MEDS ORDERED: FENTANYL ONE (12:15)
[2019-01-03] MEDS: MORPHINE ONE ×2 (13:25→13:30)
--- NOTE | 2019-01-03 13:25 | Diag Imaging Result Doc PS360 ---
EXAM: CHEST-1 VIEW 01/03/2019 HISTORY: increase RR TECHNIQUE: AP portable at 1316 COMMENT: The inspiration is suboptimal. Considering degree of inspiration there has been no significant change since 12/29/2018. IMPRESSION: Stable chest. Electronically signed by Bernardo Brennan 01/03/2019 1:23 PM
--- NOTE | 2019-01-03 14:33 | NEPHROLOGY PROGRESS NOTE ---
DATE: 01/03/2019 SUBJECTIVE: She is lying in bed. She states she does not feel well today. OBJECTIVE: Vital Signs: Blood pressure 135/86, heart rate 88, respiration 16, afebrile. Generally: She is pale and dry. Ill-appearing but not acutely ill. Skin: Warm and dry otherwise. Conjunctiva: Are pale. Pupils are equal. Neck: Neck veins are distended. Heart: Regular and mildly tachycardic. Lungs: Have equal breath sounds. No crackles. Somewhat increased respiratory rate. Abdomen: Soft, nontender. Bowel sounds present. Extremities: No edema, clubbing or cyanosis. IMPRESSION: Hyperkalemia and hyponatremia. I stopped her Lovenox yesterday. Urine electrolytes are pending. Potassium is 5.0 today. No other obvious cause. I will stop her fluids today and check a chest x-ray. No other changes. cc: Manuel Driver MD
[2019-01-03 14:47] LABS: ALLEN TEST YES; BE -8.8 mmoll (-3.0-3.0); BLOOD TYPE ARTERIAL; METHB 1.3 % (0.0-1.5); O2(CT) 17.4 mL/dL (15.0-23.0); O2HB 93.1 % (95.0-99.0); PCO2(98.6) 29 mmHg (35-45); PO2(98.6) 72 mmHg (60-100); SAMPLE BLOOD; SAO2 96.6 % (95.0-100.0); THB 13.3 g/dL (11.5-17.4); pH(98.6) 7.34 (7.35-7.45)
[2019-01-03 14:53] LABS: MODALITY CANNULA
--- NOTE | 2019-01-03 15:06 | PROGRESS NOTE ---
DATE: 01/03/2019 SUBJECTIVE: This patient had a procedure done today, feeding jejunostomy tube and Port-A-Cath placement, she seems to be doing good. At this moment, she is complaining of some soreness, family members at the bedside. Potassium level is 5. We will monitor. OBJECTIVE: Vital Signs: Temperature 96.9 degrees, pulse 116, respiratory rate 13, blood pressure 107/83, oxygen saturation 94% on room air. HEENT: Head normocephalic, no trauma. PERRLA. Neck: Supple. No JVD. No masses. Central trachea. Chest: Clear to auscultation. No wheezing. No rales. Abdomen: Soft, protuberant, positive bowel sounds but decreased. Generalized tenderness to palpation. She has a jejunostomy tube on the left side. Extremities: No edema, no clubbing, no cyanosis. Neurological: The patient is alert and oriented x3. No focal deficits but generalized weakness. LABORATORY: WBC 24.4, hemoglobin 12.9, hematocrit 37.8, platelets 360,000, sodium 127, potassium 5, chloride 95, bicarbonate 15, BUN 45, creatinine 1.2, glucose 142, calcium 7.9, albumin 2.3. ASSESSMENT AND PLAN: 1. Metastatic gastric adenocarcinoma, we will continue to monitor. They placed a Port-A-Cath today and also a feeding jejunostomy tube, we will continue with the same management. 2. Intractable nausea, vomiting and decreased appetite, likely due to her current condition with gastric cancer and metastasis. She was tolerating some fluids. She has a jejunostomy tube. We will monitor. 3. Anemia, hematology oncology Department on board. 4. Generalized weakness and physical deconditioning. Aware. 5. Hyperkalemia. Today, potassium level is 5. We will continue to monitor. 6. Hyperlipidemia. Continue with fish oil. 7. Diabetes. Continue pattern of blood sugar and sliding scale insulin. 8. Gastroesophageal reflux disease. Continue with same management. 9. History of kidney and bladder infection, no urinary symptoms at this moment. Urine culture has been negative. 10. Leukocytosis, likely reactive. I do not have any source of infection. I will go ahead and ask again for a urine culture and also I will get an ascitic fluid culture and blood culture. cc: Alan Umanzor MD
[2019-01-03 15:49] LABS: BODY FLUID SOURCE PERITONEAL FLUID; MONOS 30 %; POLYS 70 %; WBC BF 2335 /cumm
--- NOTE | 2019-01-03 17:34 | HEMO/ONC PROGRESS NOTE ---
DATE: 01/03/2019 SUBJECTIVE: The patient states she is not feeling very good this morning. She describes that she had a very rough night. She was nauseated with vomiting several times during the night. She states the medication is only relieving her nausea minimally. Her potassium level is normal this morning. She is on the surgery schedule for her feeding jejunostomy tube and Port-A-Cath. OBJECTIVE: Vital signs: Temperature 97.6 degrees, pulse rate 88, respiratory rate 16, blood pressure 135/86, O2 saturation 95% on room air. Pain: She is in 10/10 abdominal pain. General: She appears very ill and uncomfortable this morning. Respiratory: Clear to auscultation with normal respiratory effort. Cardiovascular: Normal S1 and S2. Regular rate and rhythm. Abdomen: Soft, protuberant, and slightly distended. She is tender to light palpation. Ascites drain tube noted to the right side of the abdomen. Neurological: She is A O x3 with no focal motor deficits. LABORATORY: WBC 24.45, hemoglobin 12.9, hematocrit 37.8, platelet count 360,000. ANC 20.13. Sodium 127, potassium 5.0, creatinine 1.2, calcium 7.9. ASSESSMENT: 1. Metastatic gastric adenocarcinoma with intractable nausea and vomiting. 2. Iron deficiency anemia. 3. Malignant ascites. 4. Generalized weakness with physical deconditioning. 5. Hyperkalemia. PLAN: The patient is going for placement of a feeding and a Port-A-Cath today. We will continue to monitor her electrolyte levels. Continue nausea medication routinely to help control her nausea and vomiting. Please continue management per medical staff. We will continue to follow along with you. Dictated by WILFREDO Blanchard for Edmond Oh MD cc: Edmond Oh MD [facility]
[2019-01-03] MEDS: PERIDEX MT SCH (21:06)
--- NOTE | 2019-01-03 21:08 | OPERATIVE NOTE ---
PROCEDURE DATE: 01/03/2019 PREOPERATIVE DIAGNOSIS: Metastatic gastric cancer. POSTOPERATIVE DIAGNOSIS: Metastatic gastric cancer. PROCEDURE PERFORMED: 1. Ultrasound-guided right internal jugular vein port placement with fluoroscopy less than 1 hour. 2. Open feeding jejunostomy tube placement. ANESTHESIA: General. INDICATION: A 73-year-old female with metastatic gastric cancer. She has been intolerant to oral intake and plans to undergo palliative chemotherapy. OPERATIVE FINDINGS: 1. Ultrasound of the right neck showed a compressible internal jugular vein with no evidence of thrombus. Final fluoroscopic image showed good position of the catheter in the superior vena cava-atrial junction with no kinking of the catheter. 2. There was omental caking and numerous peritoneal implants, but no significant small bowel dilation to suggest distal obstruction. OPERATIVE NOTE: Risks, benefits and alternatives were discussed with the patient and she consented to the procedure. She is seen preoperatively. Surgical site was confirmed. She was taken to the operating room and placed in the supine position. General anesthesia induced without complication. All bony prominences were well padded. Her neck, chest and abdomen was prepped with Betadine, excluding a right upper quadrant peritoneal drain. After a time- out, she was placed in Trendelenburg position and focused ultrasound of the right neck was performed. We accessed the jugular vein on first pass non pulsatile venous blood was noted on return. The wire threaded easily. Skin vadim was made in the subcutaneous pouch and a wire threaded easily. A subcutaneous pouch was made. The catheter was tunneled through the incision in the chest to the incision in the neck. We checked and it was dilated. The catheter was advanced. We then withdrew until it was in good position, confirmed with fluoroscopy. We trimmed the catheter, connected the port placed in the subcutaneous pouch secured with Prolene suture, withdrew blood and flushed without resistance. Final fluoroscopic image was appropriate. We closed the deep dermis interrupted 0 Vicryl sutures. Skin was closed with 4-0 Monocryl in both the neck and chest. Dermabond was applied. We then accessed the Farrell needle to allow anesthesia more reliable access. At this point, we made a supraumbilical incision after excluding the right upper quadrant wound, carried it down to the fascia and incised the fascia along the midline. We eviscerated the large omental caking of the tumor and identified the proximal small bowel running this back to the ligament of Treitz. We then identified an area of jejunum that would reach the abdominal wall. We did this successfully and tunneled a red Gibbons catheter from the left upper quadrant through the abdominal wall, made an enterotomy and placed a pursestring and secured a fenestrated red Gibbons catheter distally in the small bowel. We then tacked it to the abdominal wall. There was good opposition. We flushed this to ensure there was no leaking and the small bowel fill distally. We placed the omentum back in its typical location and then closed the fascia with a running #1 PDS suture. The skin was closed with surgical clips. She tolerated this well. Dressing was applied. She was awoken and transferred to recovery, I spoke with family. cc: David Alaniz MD [facility]TD[facility]
[2019-01-04] MEDS: MORPHINE IV PRN ×4 (04:33→23:38)
[2019-01-04] MEDS ORDERED: NS 500 ML IV ONE (05:01)
[2019-01-04] MEDS ORDERED: NS 1,000 ML IV ONE (05:01)
[2019-01-04 05:51] LABS: BASO# 0.04 X1000 (0.0-0.2); BASO% 0.1 % (0.0-0.8); HEMATOCRIT 33.7 % (37.0-47.0); HEMOGLOBIN 11.6 g/dL (12.0-16.0); IMM GRAN# 0.31 X1000 (0.0-0.04); IMM GRAN% 1.1 % (0.0-0.5); LYMPH% 8.2 % (20.5-51.1); MCH 31.9 PG (27-31); MCHC 34.4 g/dL (33-37); MCV 92.6 FL (81-99); MONO# 2.08 X1000 (0.11-0.59); MONO% 7.1 % (1.7-9.3); MPV 10.7 FL (7.4-10.4); NEUT# 24.35 X1000 (1.4-6.5); NEUT% 83.5 % (42.2-75.2); PLT 426 X1000 (130-400); RBC 3.64 XMIL (4.2-5.4); RDW 14.6 % (11.5-14.5); WBC 29.18 X1000 (4.8-10.8)
[2019-01-04 05:57] LABS: LYMPHS 4 % (21-51); MONO 4 % (1-9); SEGS 90 % (42-75)
[2019-01-04 06:00] LABS: ALB/GLOB RATIO 0.8; ALBUMIN 2.2 g/dL (3.5-5.0); CALCIUM 7.7 mg/dL (8.8-10.2); CREATININE 2.1 mg/dL (0.5-0.9); POTASSIUM 4.7 mmol/L (3.5-5.1); TOTAL BILIRUBIN 0.23 mg/dL (0.20-1.00); TOTAL PROTEIN 4.9 g/dL (6.3-8.3)
[2019-01-04] MEDS: HUMALOG SUBQ SCH ×4 (07:00→22:18)
--- NOTE | 2019-01-04 09:02 | HEMO/ONC PROGRESS NOTE ---
DATE: 01/04/2019 HISTORY OF PRESENT ILLNESS: The patient states she feels much better this morning. She had a good night. Her nausea has been very minimal. She states her procedure went very successful without any events yesterday. She had her J-tube placed as well as a Port-A-Cath. The surgeon states both procedures were successful. Her potassium level remains normal. She has pain in her abdomen and tenderness to palpation. OBJECTIVE: Vital Signs: Temperature 98.3 degrees, pulse rate 114, respiratory rate 18, blood pressure 107/75, O2 saturation 95% on room air. She is in 6/10 pain. Physical Examination: General: She appears pale and is ill-appearing this morning. Respiratory: Lungs are clear to auscultation. Normal respiratory effort. Cardiovascular: Normal S1, S2. Gastrointestinal: Abdomen is soft, protuberant, slightly distended. Tenderness all over to light palpation. She has a drain to the right side of her abdomen, a jejunostomy tube that is completely covered with a dressing just left to midline. Skin: Port-A-Cath site is covered with a clean, dry bandage. Neurological: She is A and O x3 with no focal motor deficits. Laboratory: WBC 29.18, hemoglobin 11.6, hematocrit 33.7, platelet count 426,000, ANC 24.35. Sodium 129, potassium 4.7, calcium 7.7, creatinine 2.1. ASSESSMENT: 1. Metastatic gastric adenocarcinoma with intractable nausea and vomiting. 2. Mild normocytic anemia. 3. Malignant ascites. 4. Generalized weakness and physical deconditioning. PLAN: We will continue to follow along and monitor the patient. With the placement of a J-tube, we hope her nutrition status can improve quickly. Continue nausea medications routinely to control the nausea and vomiting. Replete electrolytes as needed. Continue management per medical and surgical staff. We will continue to follow along closely with you. Dictated by WILFREDO Blanchard for Edmond Oh MD cc: Edmond Oh MD
[2019-01-04] MEDS: PERIDEX MT SCH ×2 (09:40→22:56)
[2019-01-04] MEDS: 1/2 NS 1,000 ML IV SCH ×2 (11:29→23:49)
--- NOTE | 2019-01-04 12:42 | NEPHROLOGY PROGRESS NOTE ---
DATE: 01/04/2019 SUBJECTIVE: She had surgery yesterday. She states she is feeling better today. She had a port placed and a feeding tube. No nausea or vomiting today. No diarrhea. OBJECTIVE: Vital Signs: Blood pressure 107/75, heart rate 114, respirations 18, afebrile. General: No acute distress. Skin: Warm and dry. Conjunctivae are pink. Neck: Neck veins are not distended. Heart: Regular. No gallops. Lungs: Equal. No crackles or wheezes. Abdomen: Soft, nontender. Bowel sounds are present. Extremities: Have no edema, clubbing, or cyanosis. IMPRESSION: 1. Hyperkalemia, improved. Continue intravenous fluids. 2. Acute kidney injury. She did have transient hypotension in the operating room yesterday. Urine output remains good. We will simply continue her intravenous fluids and observe. We will scan her bladder for bladder retention. cc: Manuel Driver MD
--- NOTE | 2019-01-04 15:53 | PROGRESS NOTE ---
DATE: 01/04/2019 SUBJECTIVE: This patient is resting comfortably in bed. She feels tired. She is still hyponatremic. Potassium level looks better. She does have an acute kidney injury. It looks like she had some episodes of hypotension during the surgery. We will continue to monitor. She is still on IV fluids. OBJECTIVE: Vital Signs: Temperature 98.1 degrees, pulse 118, respiratory rate 20, blood pressure 103/65, oxygen saturation 94 on room air. HEENT: Head normocephalic, no trauma. PERRLA. Neck: Supple. No JVD. No masses. Central trachea. Chest: Clear to auscultation. No wheezing. No rales. Abdomen: Soft, protuberant. Positive bowel sounds, but decreased. Generalized tenderness to palpation. She has a jejunostomy tube on the left side. Extremities: No edema, no clubbing, no cyanosis. Neurological: This patient is alert. She is oriented x3. No focal deficit, but generalized weakness. LABORATORY: WBC 29.1, hemoglobin 11.6, hematocrit 33.7, platelets 426. Sodium 129, potassium 4.7, chloride 93, bicarbonate 17, BUN 57, creatinine 2.1, glucose 116, calcium 7.7, albumin 2.2. ASSESSMENT AND PLAN: 1. Metastatic gastric adenocarcinoma. We will continue to monitor. A Port-A-Cath and also feeding jejunostomy tube have been placed. We will continue with the same management. Hopefully tomorrow we can start this patient on a tube feeding. 2. Intractable nausea/vomiting and decreased appetite, likely due to her current condition with gastric cancer metastasis. She was tolerating some fluids. She has a jejunostomy tube. 3. Anemia. Hematology/Oncology on board. 4. Acute kidney injury, probably due to hypotension. Continue with IV fluids. Blood pressure has been stable today, mostly in the 100s. 5. Hyperkalemia, resolved. 6. Hyperlipidemia. Continue with fish oil. 7. Diabetes. Continue pattern of blood sugar and sliding scale insulin. 8. Gastroesophageal reflux disease. Continue with the same management. 9. History of kidney and bladder infection. No urinary symptoms at this moment. Urine culture has been negative. 10. Leukocytosis, probably reactive, but I requested a blood culture, urine culture, and ascitic fluid culture to rule out an infection. cc: Alan Umanzor MD
--- NOTE | 2019-01-04 19:13 | GENERAL SURGERY PROGRESS NOTE ---
DATE: 01/04/2019 SUBJECTIVE: Patient feels okay. Pain is okay. Her port is functioning. Nausea is about the same. No fevers. No tachycardia. OBJECTIVE: She is alert. Abdomen is soft. Dressing is intact. Her J tube is in place. White count is 29, hematocrit is 33. Creatinine is 2.1, sodium is 129, glucose 116. ASSESSMENT AND PLAN: A 73-year-old female status post jejunostomy tube placement as well as Port- A-Cath placement for metastatic gastric cancer. She does have a little bit worsening of her renal function, acute on chronic. She has been hydrated by the hospitalist service. I agree with this. Her electrolytes seem okay. Her sodium is still a little low. We are starting trophic feeds tomorrow assuming she does not have significant bloating or nausea. We will follow her going forward. cc: David Alaniz MD
[2019-01-05 06:31] LABS: BASO# 0.02 X1000 (0.0-0.2); BASO% 0.1 % (0.0-0.8); EOS# 0.01 X1000 (0.0-0.7); HEMATOCRIT 28.6 % (37.0-47.0); HEMOGLOBIN 9.9 g/dL (12.0-16.0); IMM GRAN# 0.22 X1000 (0.0-0.04); IMM GRAN% 0.9 % (0.0-0.5); LYMPH# 1.64 X1000 (1.2-3.4); LYMPH% 6.9 % (20.5-51.1); MCH 32.1 PG (27-31); MCHC 34.6 g/dL (33-37); MCV 92.9 FL (81-99); MONO# 1.74 X1000 (0.11-0.59); MONO% 7.3 % (1.7-9.3); MPV 10.6 FL (7.4-10.4); NEUT% 84.8 % (42.2-75.2); PLT 356 X1000 (130-400); RBC 3.08 XMIL (4.2-5.4); RDW 14.3 % (11.5-14.5); WBC 23.73 X1000 (4.8-10.8)
[2019-01-05 06:53] LABS: CALCIUM 7.4 mg/dL (8.8-10.2); CREATININE 1.7 mg/dL (0.5-0.9); POTASSIUM 4.1 mmol/L (3.5-5.1)
[2019-01-05] MEDS: HUMALOG SUBQ SCH ×4 (07:00→22:38)
[2019-01-05] MEDS ORDERED: ARIXTRA SUBQ SCH (09:15)
[2019-01-05] MEDS: NS 1,000 ML IV SCH ×2 (10:13→22:54)
[2019-01-05] MEDS: PERIDEX MT SCH ×2 (10:16→21:24)
--- NOTE | 2019-01-05 11:03 | HEMO/ONC PROGRESS NOTE ---
DATE: 01/05/2019 HISTORY OF PRESENT ILLNESS: The patient continues to feel better this morning. Her nausea is at a minimum. She is somewhat tender in her abdomen from her surgical placement of a J-tube. She had no significant events over the evening. She has no complaints today. OBJECTIVE: Vital signs: Temperature 98.2 degrees, pulse rate 108, respiratory rate 20, blood pressure 128/68, O2 saturation 97% on room air, 6/10 abdominal pain. Physical Exam: General: She appear ill and pale this morning. Respiratory: Lungs are clear to auscultation. Normal respiratory effort. Cardiovascular: Normal S1, S2. Abdomen: Soft. Dressing is intact. Abdominal drain to the right side of her abdomen intact. Tenderness to light palpation. Skin: Port-A-Cath site appears healthy and is functioning well. Neurological: Alert and oriented x3. No focal motor deficits LABORATORY: WBC 23.73, hemoglobin 29.9, hematocrit 28.6, platelet count 356. ANC 20.10. Sodium 125, potassium 4.1, creatinine 1.7, calcium 7.4. ASSESSMENT: 1. Metastatic gastric adenocarcinoma with intractable nausea and vomiting. 2. Mild normocytic anemia. 3. Malignant ascites. 4. Generalized weakness and deconditioning. PLAN: The patient's Port-A-Cath is functioning well. We will monitor for the use of the J-tube and for her nutritional status to improve. Continue her nausea medications as necessary to control nausea and vomiting. Replace her electrolytes as necessary. Patient needs to be on DVT prophylaxis. We have started her compression devices and began her on Arixtra subcutaneous. Dictated by WILFREDO Blanchard for Edmond Oh MD Patient seen and examined. As above. Patient is status post Port-A-Cath placement and J-tube placement. Today she has minimal nausea. She reports that later today Dr. Alaniz is planning to start tube feeds. She is in good spirits. Her hyperkalemia was suspected to be from Lovenox. Potassium level has normalized at this time after stopping lovenox. Plan to start Arixtra for DVT prophylaxis. Continue current management. Edmond Oh M.D. cc: Edmond Oh MD [facility]
--- NOTE | 2019-01-05 14:19 | PROGRESS NOTE ---
DATE: 01/05/2019 SUBJECTIVE: This patient is resting comfortably in bed. She feels tired. Kidney function looks better. Potassium level is within normal limits. Hematology/Oncology department following this patient as well as Nephrology Department. Today, hopefully we will put this patient on a diet, through her feeding jejunostomy tube. Hemoglobin dropped from 11.6 to 9.9. We will keep an eye on that. OBJECTIVE: Vital Signs: Temperature 97.9 degrees, pulse 107, respiratory rate 20, blood pressure 131/60, and oxygen saturation 96 on room air. HEENT: Head normocephalic. No trauma. PERRLA. Neck: Supple. No JVD. No masses. Central trachea. Chest: Clear to auscultation. No wheezing. No rales. Abdomen: Soft, protuberant. Positive bowel sounds but decreased. Generalized tenderness to palpation. She has a jejunostomy tube on the left side. Extremities: No edema. No clubbing. No cyanosis. Neurological: The patient is alert. She is oriented x3. No focal deficits but generalized weakness. LABORATORY: WBC 23.7, hemoglobin 9.9, hematocrit 28.6, platelet 356,000, sodium 125, potassium 4.1, chloride 91, bicarbonate 17, BUN 58, creatinine 1.7, glucose 78, and calcium 7.4. ASSESSMENT AND PLAN: 1. Metastatic gastric adenocarcinoma. We will continue to monitor. She recently had a Port-A- Cath, and also feeding jejunostomy tube placed. We are going to start with tube feeding today. We will continue with the same management for now. 2. Intractable nausea, vomiting and decreased appetite, aware, likely due to her current condition with gastric cancer with metastasis. She is tolerating a little bit of fluids by mouth, and she has a jejunostomy tube placed. 3. Anemia. Hemoglobin dropped from 11.6 to 9.9. We will keep an eye on this. Hematology/Oncology on board. 4. Acute kidney injury, probably due to hypotension. This is getting better. Continue with normal saline. 5. Hyperkalemia resolved. 6. Hyperlipidemia. Continue with fish oil. 7. Diabetes. Continue with pattern of blood sugar and sliding scale insulin. 8. History of kidney and bladder infection. No urinary symptoms. At this moment, urine culture has been negative. 9. Leukocytosis. Likely, this is reactive but I requested blood culture, urine culture and peritoneal fluid analysis as well to rule out an infection. She is not on antibiotics, DVT prophylaxis with Arixtra. cc: Alan Umanzor MD
--- NOTE | 2019-01-05 15:45 | NEPHROLOGY PROGRESS NOTE ---
DATE: 01/05/2019 SUBJECTIVE: She is feeling better today. No nausea or vomiting. OBJECTIVE: Vital Signs: Blood pressure 128/68, heart rate 108, respirations 20, T-max 99.7 degrees. General: No acute distress. Skin: Warm and dry. Neck: Neck veins are not distended. Heart: Regular. Lungs: Equal. Abdomen: Flat. Extremities: Have no edema, clubbing or cyanosis. IMPRESSION: Acute kidney injury. Creatinine is improving some today. She still has hyponatremia but her hyperkalemia is resolved. I will change her IV fluids to normal saline because of her hyponatremia but no other changes. cc: Manuel Driver MD
[2019-01-05] MEDS: MORPHINE IV PRN ×2 (17:09→21:24)
--- NOTE | 2019-01-06 00:13 | GENERAL SURGERY PROGRESS NOTE ---
DATE: 01/05/2019 SUBJECTIVE: Feels okay. No abdominal pain. She is passing gas. Nausea has been stable. No fevers. OBJECTIVE: Pulse down to 70 from 107, blood pressure 131/70. General: She is alert. Abdomen: Soft. Port is in place. It is accessed. J-tube is in place. LABORATORY: White count is 23, hematocrit is 28. Creatinine is 1.7. ASSESSMENT AND PLAN: A 73-year-old female with metastatic gastric cancer. Doing okay after jejunostomy tube placed. Will start trophic tube feeds. Dr. Kent is following my patients over the weekend. cc: David Alaniz MD
[2019-01-06] MEDS: MORPHINE IV PRN ×2 (05:41→21:02)
[2019-01-06] MEDS: ZOFRAN IV PRN ×2 (05:54→21:02)
[2019-01-06] MEDS: PHENERGAN PR PRN ×2 (08:08→18:11)
[2019-01-06 08:23] LABS: BASO# 0.03 X1000 (0.0-0.2); BASO% 0.1 % (0.0-0.8); EOS# 0.01 X1000 (0.0-0.7); HEMATOCRIT 30.5 % (37.0-47.0); HEMOGLOBIN 10.3 g/dL (12.0-16.0); IMM GRAN# 0.39 X1000 (0.0-0.04); IMM GRAN% 1.5 % (0.0-0.5); LYMPH# 1.19 X1000 (1.2-3.4); LYMPH% 4.6 % (20.5-51.1); MCH 31.3 PG (27-31); MCHC 33.8 g/dL (33-37); MCV 92.7 FL (81-99); MONO# 1.56 X1000 (0.11-0.59); MPV 10.6 FL (7.4-10.4); NEUT% 87.8 % (42.2-75.2); PLT 416 X1000 (130-400); RBC 3.29 XMIL (4.2-5.4); RDW 14.4 % (11.5-14.5); WBC 26.08 X1000 (4.8-10.8)
[2019-01-06 08:43] LABS: ALB/GLOB RATIO 0.6; ALBUMIN 1.7 g/dL (3.5-5.0); CALCIUM 7.6 mg/dL (8.8-10.2); CREATININE 1.1 mg/dL (0.5-0.9); TOTAL BILIRUBIN 0.16 mg/dL (0.20-1.00); TOTAL PROTEIN 4.6 g/dL (6.3-8.3)
[2019-01-06 08:44] LABS: MAGNESIUM 2.5 mg/dL (1.5-2.7); PHOSPHORUS 5.1 mg/dL (2.7-4.5)
[2019-01-06 09:11] LABS: BANDS 2 % (0-1); LYMPHS 8 % (21-51); MONO 2 % (1-9); SEGS 88 % (42-75)
--- NOTE | 2019-01-06 12:30 | Diag Imaging Result Doc PS360 ---
CHEST-PORTABLE - 01/06/2019 INDICATION: dyspnea COMPARISON: 01/03/2019 FINDINGS: Stable severely low lung volumes. Stable right chest port. No definite infiltrates. Heart size remains normal. IMPRESSION: Severely low lung volumes. No change from prior. Electronically signed by Sha Landry 01/06/2019 12:28 PM
--- NOTE | 2019-01-06 12:34 | Diag Imaging Result Doc PS360 ---
ABDOMEN FLAT/UPRIGHT - 01/06/2019 INDICATION: obstruction COMPARISON: None FINDINGS: There are laparotomy skin jannette. There is a tube projecting over the central abdomen. There are numerous, severely gaseous distended loops of small bowel. No significant colon or rectal gas. IMPRESSION: Severely gas distended small bowel indicating high-grade small bowel obstruction. Electronically signed by Sha Landry 01/06/2019 12:32 PM
[2019-01-06] MEDS: HUMALOG SUBQ SCH ×3 (12:50→20:56)
[2019-01-06] MEDS: NS 1,000 ML IV SCH (12:50)
--- NOTE | 2019-01-06 14:00 | Diag Imaging Result Doc PS360 ---
CT ABDOMEN/PELVIS W/O CONTRAST - 01/06/2019 INDICATION: small bowel obstruction COMPARISON: X-rays from just a couple hours ago FINDINGS: The lung bases are clear and the heart size is normal. There is a small to moderate amount of ascites. There are two catheters in the abdomen. There are laparotomy incision skin jannette. There is severe nodularity of the omentum mainly on the right side compatible with peritoneal carcinomatosis. There are numerous diverticula of the sigmoid colon. There appears to be some gas in the colon now. The small bowel is somewhat dilated but not nearly as much is on the prior x-ray series. Uterus contains numerous dystrophic calcifications. Urinary bladder and rectum are normal. Bones are intact. IMPRESSION: 1. Small to moderate ascites. There are two catheters in the abdomen. 2. Omental caking. 3. Improvement in small bowel obstruction with more gas in the colon now. The reason for hyperinflation remains unclear. This exam was performed using automated exposure control, adjustment of mA or kV according to patient size, and/or use of iterative reconstruction technique Electronically signed by Sha Landry 01/06/2019 1:57 PM
[2019-01-06] MEDS: PERIDEX MT SCH ×2 (14:09→21:02)
[2019-01-06 17:59] LABS: SPECIMEN PERITONEAL FLUID
[2019-01-06] MEDS: ZOSYN 3.375 GM in NS 50 ML IV SCH ×2 (18:27→23:35)
[2019-01-06] MEDS: LR 1,000 ML IV SCH (18:27)
[2019-01-06 18:30] LABS: BODY FLUID SOURCE PERITONEAL FLUID; WBC BF 3224 /cumm
[2019-01-06 18:32] LABS: MONOS 11 %; POLYS 89 %
[2019-01-06 18:48] LABS: GLUCOSE BODY FLUID 110 mg/dL; LDH BODY FLUID 240 U/L
[2019-01-06 18:49] LABS: ALBUMIN BODY FLUID 1.1 g/dL; AMYLASE BODY FLUID 3 U/L
--- NOTE | 2019-01-06 19:21 | GENERAL SURGERY PROGRESS NOTE ---
DATE: 01/06/2019 SUBJECTIVE: The patient seems to be doing okay. She had her tube feeds started yesterday. She seems to be tolerating it. OBJECTIVE: Vital signs: The patient is currently afebrile. Her vital signs are stable. On general exam, no acute distress. Cardiovascular: Regular rate and rhythm. Lungs grossly clear. Abdomen soft, appropriately tender. ASSESSMENT AND PLAN: A 73-year-old female status post open jejunostomy tube placement and Port-A- Cath placement. Postoperative state: At this time she has trophic tube feeds going. The dietitian has been consulted for recommendations. We will see what they say as far as advancement, but continue trophic feeds for now. cc: Nghia Kent MD
[2019-01-06] MEDS: HEPARIN SUBQ SCH (21:02)
--- NOTE | 2019-01-06 23:34 | PROGRESS NOTE ---
DATE: 01/06/2019 SUBJECTIVE: The patient complained of nausea and vomiting this morning, so her tube feeds were held. The patient denies having any pain. OBJECTIVE: Vital Signs: Temperature 98 degrees, blood pressure 93/70, heart rate 114, respirations 16, O2 saturation is 98% on room air. General: This is a chronically ill-appearing, elderly female, lying in bed, in no acute distress. Head: Normocephalic, atraumatic. Heart: S1, S2 normal. Tachycardic. Lungs: Equal air entry bilaterally. No wheezing. No rales. No rhonchi. Abdomen: Positive bowel sounds. Soft, nontender. Extremities: No edema. No cyanosis. Neurologic: The patient is alert and oriented x4. LABORATORY AND DIAGNOSTIC DATA: White blood cell count 26, hemoglobin 10, hematocrit 30, platelets 416,000. Sodium 130, potassium 4, chloride 97, CO2 is 16, BUN 49, creatinine 1.1, glucose 131, albumin 1.7. CT of the abdomen and pelvis shows [id number] ascites due to omental caking. Small bowel obstruction. ASSESSMENT AND PLAN: 1. Small bowel obstruction. The CT done today shows a small bowel obstruction and omental caking. We will defer to General Surgery regarding management. 2. Metastatic gastric adenocarcinoma status post jejunostomy tube placement. The patient's tube feeds were held this morning due to nausea and vomiting. General Surgery and Oncology are following. We will continue with IV fluids. 3. Leukocytosis. Worse. Will repeat blood cultures and also check the peritoneal fluid. We will start empiric therapy with Zosyn. 4. Anemia. Stable. 5. Acute kidney injury. Improved. 6. Hyponatremia. Slowly improving. 7. Metabolic acidosis. We will continue to monitor for improvement. 8. Severe protein calorie malnutrition. Aware. 9. Deep vein thrombosis prophylaxis. We will start the patient on heparin. cc: Oliva Shay MD MTDD
[2019-01-07] MEDS: NEXIUM IV SCH ×2 (05:55→06:03)
[2019-01-07] MEDS: HEPARIN SUBQ SCH ×3 (05:55→20:15)
[2019-01-07] MEDS: ZOSYN 3.375 GM in NS 50 ML IV SCH ×4 (05:56→23:32)
[2019-01-07] MEDS: HUMALOG SUBQ SCH ×4 (06:03→20:16)
[2019-01-07] MEDS: LR 1,000 ML IV SCH (06:03)
--- NOTE | 2019-01-07 06:54 | HEMO/ONC PROGRESS NOTE ---
DATE: 01/06/2019 SUBJECTIVE: Patient reports significant nausea overnight. Tube feeds were started last evening. At this point, the tube feeds have been stopped. She looks weak at this time. She has some abdominal discomfort, more so in the surgical site. Otherwise, no abdominal discomfort. She reports that her abdomen feels bloated. PHYSICAL EXAMINATION: Temperature 97.9 degrees, pulse 116, blood pressure 117/63. Eyes: EOMI. PERRLA. Anicteric. Mucous membranes appear partly dry. She looks weak. Neck: Supple. Cardiac Examination: Regular rate and rhythm. Normal S1, S2. Chest: Clear to auscultation. Abdomen: Slightly bloated. Bowel sounds are slow/inactive. Extremities: In SCDs. Mild edema. LABORATORY DATA: White count 26.0, hemoglobin 10.3, platelets 416,000. BUN 49, creatinine 1.1, potassium 4.0. ASSESSMENT: 1. Metastatic gastric adenocarcinoma with mesenteric and peritoneal implant. 2. Normocytic anemia. 3. Malignant ascites, status post long-term drainage catheter. 4. Intractable nausea and vomiting for the last 6 weeks. 5. Deep venous thrombosis prophylaxis. PLAN: Yesterday, the patient had a good day without any nausea. Tube feeds were started in the evening. Overnight, she has had significant nausea. Hence, tube feeds have been stopped at this time. There are plans for restarting and I would like the patient to restart it extremely slowly. Proceed with giving her Zofran 16 mg IV, which we will plan to do daily. We will use Reglan or Phenergan p.r.n. for nausea control. Abdomen is slightly bloated. Proceed with x-ray of the abdomen. Continue Arixtra for DVT prophylaxis. cc: Edmond Oh MD
--- NOTE | 2019-01-07 07:08 | NEPHROLOGY PROGRESS NOTE ---
DATE: 01/06/2019 SUBJECTIVE: She is about the same today. She greeted me. Denies pain. No bowel movement. OBJECTIVE: Vital Signs: Blood pressure 93/70, heart rate 114, respirations 16, afebrile. General: No acute distress. Pale. Skin: Warm and dry. Neck: Neck veins are not appreciated. Heart: Regular, tachycardic, with a murmur. Lungs: Equal. No crackles or wheezes. Abdomen: Soft, nontender. Bowel sounds present. Extremities: No edema, clubbing, or cyanosis. IMPRESSION: 1. Acute kidney injury. Resolving. 2. Hyperkalemia and hyponatremia. Present secondary to heparin. Improving. 3. Metabolic acidosis. I will change her normal saline to lactated Ringer's. 4. Small-bowel obstruction/leukocytosis/tachycardia. Discussed directly with Dr. Shay, who will broaden her antibiotics and reculture peritoneal dialysis fluid and blood. cc: Manuel Driver MD
--- NOTE | 2019-01-07 07:32 | Diag Imaging Result Doc PS360 ---
ABDOMEN FLAT/UPRIGHT - 01/07/2019 INDICATION: small bowel obstruction COMPARISON: 01/06/2019 FINDINGS: There has been improvement in the severely gaseous distended loops of small bowel. No evidence of free air. There are two catheters in the abdomen. Very little colon and no rectal gas. IMPRESSION: Improvement in the gas distended small bowel loops concerning for partial small bowel obstruction. Electronically signed by Sha Landry 01/07/2019 7:30 AM
[2019-01-07 07:55] LABS: CALCIUM 7.7 mg/dL (8.8-10.2); CREATININE 1.3 mg/dL (0.5-0.9); POTASSIUM 4.5 mmol/L (3.5-5.1)
[2019-01-07 08:12] LABS: BASO# 0.06 X1000 (0.0-0.2); BASO% 0.3 % (0.0-0.8); EOS# 0.01 X1000 (0.0-0.7); HEMOGLOBIN 10.4 g/dL (12.0-16.0); IMM GRAN# 0.43 X1000 (0.0-0.04); LYMPH# 1.21 X1000 (1.2-3.4); LYMPH% 5.7 % (20.5-51.1); MCH 31.5 PG (27-31); MCHC 33.5 g/dL (33-37); MCV 93.9 FL (81-99); MONO# 1.26 X1000 (0.11-0.59); MONO% 5.9 % (1.7-9.3); MPV 10.2 FL (7.4-10.4); NEUT# 18.35 X1000 (1.4-6.5); NEUT% 86.1 % (42.2-75.2); PLT 490 X1000 (130-400); RDW 14.5 % (11.5-14.5); WBC 21.32 X1000 (4.8-10.8)
[2019-01-07 09:04] LABS: BANDS 4 % (0-1); LYMPHS 10 % (21-51); MONO 2 % (1-9); SEGS 84 % (42-75)
[2019-01-07] MEDS: PERIDEX MT SCH ×2 (09:30→20:15)
--- NOTE | 2019-01-07 10:45 | GENERAL SURGERY PROGRESS NOTE ---
DATE: 01/07/2019 SUBJECTIVE: Patient did not seem to tolerate feeds. Her tube feeds have been turned off. OBJECTIVE: She did have a CT scan done yesterday and an abdominal film done yesterday, but there appears to be some increase in the air in the colon. Her tube feeds have been stopped, which I agree with. We will need to try to see if her postoperative ileus improves before restarting tube feeds. If she continues to have persistent nausea, may need to consider NG tube placement if possible; otherwise, continue tube drainage. May need to even consider placing her J-tube to gravity if the nausea persists. Otherwise, continue supportive care. cc: Nghia Kent MD
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
[2019-01-07] MEDS: CLINIMIX E 4.25%-5% SOLUTION 1,000 ML IV SCH (15:09)
--- NOTE | 2019-01-07 18:17 | PROGRESS NOTE ---
DATE: 01/07/2019 SUBJECTIVE: The patient states that she feels a little bit better this morning. She denies having any nausea and has not had any further episodes of emesis since yesterday. OBJECTIVE: Vital Signs: Temperature 97.1 degrees, blood pressure 122/64, heart rate 111, respirations 18, O2 saturation 98% on room air. General: This is a chronically ill-appearing elderly female lying comfortably in bed in no acute distress. Heart: S1, S2. Normal. Tachycardic. Lungs: Equal air entry bilaterally. No crackles. No rales. Abdomen: Positive bowel sounds. Soft, nontender, nondistended. Extremities: No edema, no cyanosis. Neurologic: Patient is alert and oriented x4. LABS: White blood cell count 21, hemoglobin 10, hematocrit 31, platelets 409,000. Sodium 133, potassium 4.5, chloride 99, CO2 19, BUN 49, creatinine 1.3, glucose 148, calcium 7.7. Abdominal x-ray shows improvement in the distended small bowel loops. ASSESSMENT AND PLAN: 1. Small bowel obstruction vs.ileus. Improved. We will continue to monitor closely. Management as per the general surgeon. 2. Suspected peritonitis. The patient has been assessed by Dr. Stone. We will continue on Zosyn. 3. Metastatic gastric adenocarcinoma status post jejunostomy tube placement. The patient's tube feeds are on hold. Will await further recommendations from General Surgery. 4. Leukocytosis. Slightly improved. Continue on zosyn. 5. Acute kidney injury. Stable. 6. Metabolic acidosis. Unchanged. 7. Hyponatremia. Improved. 8. Severe protein calorie malnutrition. Aware. We will start the patient on Clinimix for now. 9. Deep vein thrombosis prophylaxis. Continue on heparin. cc: Oliva Shay MD MTDD
[2019-01-07] MEDS: ZOFRAN IV PRN (20:15)
[2019-01-07] MEDS: MORPHINE IV PRN (20:16)
[2019-01-08] MEDS: CLINIMIX E 4.25%-5% SOLUTION 1,000 ML IV SCH ×2 (05:44→19:53)
[2019-01-08] MEDS: HEPARIN SUBQ SCH ×3 (05:45→20:51)
[2019-01-08] MEDS: ZOSYN 3.375 GM in NS 50 ML IV SCH ×4 (05:45→23:18)
[2019-01-08] MEDS: NEXIUM IV SCH ×2 (05:45→06:03)
[2019-01-08] MEDS: HUMALOG SUBQ SCH ×4 (06:02→21:41)
[2019-01-08 08:06] LABS: BASO# 0.04 X1000 (0.0-0.2); BASO% 0.2 % (0.0-0.8); EOS# 0.03 X1000 (0.0-0.7); EOS% 0.2 % (0.0-10.0); HEMATOCRIT 31.6 % (37.0-47.0); HEMOGLOBIN 10.5 g/dL (12.0-16.0); IMM GRAN# 0.61 X1000 (0.0-0.04); IMM GRAN% 3.4 % (0.0-0.5); LYMPH# 1.34 X1000 (1.2-3.4); LYMPH% 7.5 % (20.5-51.1); MCH 31.4 PG (27-31); MCHC 33.2 g/dL (33-37); MCV 94.6 FL (81-99); MONO# 1.44 X1000 (0.11-0.59); MONO% 8.1 % (1.7-9.3); MPV 10.1 FL (7.4-10.4); NEUT# 14.34 X1000 (1.4-6.5); NEUT% 80.6 % (42.2-75.2); PLT 500 X1000 (130-400); RBC 3.34 XMIL (4.2-5.4); RDW 14.8 % (11.5-14.5)
[2019-01-08 08:21] LABS: BANDS 3 % (0-1); LYMPHS 8 % (21-51); MONO 4 % (1-9); SEGS 82 % (42-75)
[2019-01-08 08:22] LABS: CREATININE 1.2 mg/dL (0.5-0.9); POTASSIUM 4.6 mmol/L (3.5-5.1)
[2019-01-08] MEDS: PERIDEX MT SCH ×2 (08:25→20:51)
--- NOTE | 2019-01-08 08:44 | Diag Imaging Result Doc PS360 ---
EXAM: ABDOMEN FLAT/UPRIGHT 01/08/2019 HISTORY: small bowel obstruction TECHNIQUE: Flat and upright abdomen COMMENT: There is a catheter over the left abdomen. There are surgical skin clips in the midline from the epigastrium to the umbilical region. There is an apparent drain in the right upper quadrant. There is a fairly large amount of stool present in the ascending colon and rectosigmoid. There is gaseous dilatation of multiple small bowel loops in the left upper quadrant and lower abdomen and pelvis. Compared to 01/07/2019 this has not changed significantly. IMPRESSION: The presence of significant retained stool and gas in the colon would suggest a component of ileus, whether are not there is small bowel obstruction. Electronically signed by Bernardo Brennan 01/08/2019 8:42 AM
[2019-01-08] MEDS ORDERED: DULCOLAX PR ONE (09:14)
[2019-01-08 10:19] LABS: ALLEN TEST YES; BE -5.8 mmoll (-3.0-3.0); BLOOD TYPE ARTERIAL; HCO3-(ACT) 20.3 mmoll (20.0-26.0); METHB 1.6 % (0.0-1.5); O2HB 94.2 % (95.0-99.0); PCO2(98.6) 28 mmHg (35-45); PO2(98.6) 76 mmHg (60-100); SAMPLE BLOOD; SAO2 97.6 % (95.0-100.0); THB 11.3 g/dL (11.5-17.4); pH(98.6) 7.41 (7.35-7.45)
[2019-01-08 10:20] LABS: MODALITY ROOM AIR
--- NOTE | 2019-01-08 15:05 | PROGRESS NOTE ---
DATE: 01/08/2019 SUBJECTIVE: The patient is resting comfortably. She denies having any nausea or vomiting. Her family reports that she has been hallucinating and seeing things that are not there. OBJECTIVE: Temperature 98.3 degrees, blood pressure 122/72, heart rate 102, respirations 16, and O2 saturation 97% on room air.General: This is a chronically ill-appearing elderly female lying in bed in no acute distress. Heart: S1, S2 normal. Tachycardic. Lungs: Equal air entry bilaterally. No wheezing. No rales. No rhonchi. Abdomen: Positive bowel sounds. Soft, nontender, and nondistended. Extremities: No edema. No cyanosis. Neurologic: The patient is alert and oriented x3. LABORATORY: White blood cell count 17, hemoglobin 10, hematocrit 31, and platelets 500,000. Sodium 133, potassium 4.6, chloride 100, CO2 20, BUN 55, creatinine 1.2 and glucose 168. Abdominal x-ray shows retained stool and gas in the colon. ASSESSMENT AND PLAN: 1. Ileus. The x-ray from this morning shows retained stool in the colon. Will give the patient a Dulcolax suppository and monitor her response. Further recommendations to follow from the general surgeon. 2. Peritonitis. The white blood cell count is improving. Continue on Zosyn as directed by Dr. Stone. 3. Metastatic gastric adenocarcinoma status post jejunostomy tube placement. Aware. is following. 4. Acute kidney injury. Stable. 5. Metabolic acidosis. Stable. Continue to monitor. 6. Peritonitis. Continue on zosyn. 7. Malignant ascites. Aware. 8. Severe protein calorie malnutrition. The patient is currently on Clinimix. 9. Deep vein thrombosis prophylaxis. Continue on heparin. cc: Oliva Shay MD [facility]
--- NOTE | 2019-01-08 16:40 | INFECTIOUS DISEASE PROGRESS NO ---
DATE: 01/08/2019 PRESENT ILLNESS: The patient has peritonitis. MEDICATIONS: The patient is on Zosyn. This is day 2 of treatment with that agent. PHYSICAL EXAMINATION: Vital Signs: Temperature is 97.5 degrees pulse 101, respirations 16, blood pressure 122/73. General: This is an ill-appearing elderly female. She is in no acute distress. Head/eyes/ears/nose/throat: She can hear my spoken words and see near objects. She does not have any white patches in her mouth. Neck: There is no pain in her neck when she moves it. Lungs: Clear to auscultation. Cardiovascular: Heart rate is regular. Abdomen: Soft and nontender. There are 2 tubes coming out from the abdomen. The tubes have dressings over them. The dressings are intact. Neurologic: The patient is awake. She can move her extremities. There is no tremor. She talks in a coherent fashion. LAB AND X-RAY: The patient's CBC shows a white count of 17,800, hemoglobin 10.5, and platelet count 500,000. PH is 7.41, pO2 of 76, pCO2 is 28. Creatinine is 1.2, GFR is 44. X-ray of the abdomen shows significant retained stool and gas in the colon which would suggest ileus. ASSESSMENT AND PLAN: The patient has peritonitis. I would suggest continuing with Zosyn. COMORBIDITIES: The patient unfortunately has metastatic gastric cancer. She also has diabetes mellitus and gastroesophageal reflux disease. cc: Christopher Stone MD
--- NOTE | 2019-01-08 16:53 | NEPHROLOGY PROGRESS NOTE ---
DATE: 01/08/2019 DATE SEEN: 01/08/2019. TIME SPENT: 06:50. SUBJECTIVE: Ms. Duque is resting quietly in bed. She has no specific complaints. OBJECTIVE: Vital Signs: Her most recent vital signs. Her last temperature 97.6 degrees, blood pressure 107/69, heart rate 101, respirations are 16. She is on room air. Last recorded saturation is 97%. She has recorded 1940 in. She has had 1300 out with 1 L to her intestinal drain and the other 300 mL to her Lowe catheter. General: This is a 73-year-old white female resting quietly in bed. Skin: Warm and dry. HEENT: Normocephalic, atraumatic. Conjunctivae are pale pink. She has CARLOS. Her mucous membranes are dry. Neck: Supple. Trachea midline. There is no evidence of JVD. Cardiovascular: She has regular rate and rhythm. No murmur or gallop appreciated. Lungs: Clear to auscultation bilaterally. Equal excursion on room air. Abdomen: Slightly distended. Positive bowel sounds. Nontender. The patient's peritoneal implant is dry and intact. PEG tube is also dry and intact without redness or drainage. Genitourinary: Lowe catheter is in place. She has had adequate urine out. Extremities: Have no edema. No clubbing or cyanosis. Neurological: She is alert and oriented x3. ASSESSMENT AND PLAN: 1. Acute kidney injury. The patient's baseline creatinine is 0.8. Her BUN is 55 with a creatinine of 1.2. She has had adequate urine out along with peritoneal fluid documented in the last 24 to 48 hours. No indications for dialysis intervention. 2. Hyperkalemia and hyponatremia. This has slowly improved. 3. Metabolic acidosis. The patient continues on LR. Her CO2 is 20. 4. Small bowel obstruction with leukocytosis. This is followed by Dr. Shay and GI along with infectious disease and surgical associates. I would like to thank you for allowing us to follow with this patient. Dictated by WILFREDO Bender for Manuel Driver MD Face to face encounter, data reviewed, discussed with Amadeo June on 01/08/19. I agree with the above assessment and plan of care. cc: WILFREDO Benderdish, MD [facility]
--- NOTE | 2019-01-08 19:59 | GENERAL SURGERY PROGRESS NOTE ---
DATE: 01/08/2019 SUBJECTIVE: Still has nausea, passing gas and had a bowel movement. No fevers. No tachycardia. Abdomen is soft. Dressing is in place. NG tube is in place. White count 17, hematocrit 31, creatinine is 1.2. ASSESSMENT/PLAN: A 73-year-old female with metastatic gastric cancer, status post jejunostomy tube port placement. She has undergone bowel stimulation and we will gradually begin to advance her tube feeds as she feels better. cc: David Alaniz MD
[2019-01-08] MEDS: MORPHINE IV PRN (23:36)
[2019-01-09] MEDS: HEPARIN SUBQ SCH ×3 (05:24→20:36)
[2019-01-09] MEDS: ZOSYN 3.375 GM in NS 50 ML IV SCH ×4 (05:24→23:03)
[2019-01-09] MEDS: HUMALOG SUBQ SCH ×4 (06:32→21:53)
[2019-01-09 06:40] LABS: HEMATOCRIT 31.1 % (37.0-47.0); HEMOGLOBIN 10.5 g/dL (12.0-16.0); MCH 31.5 PG (27-31); MCHC 33.8 g/dL (33-37); MCV 93.4 FL (81-99); MPV 9.9 FL (7.4-10.4); RBC 3.33 XMIL (4.2-5.4); RDW 14.5 % (11.5-14.5); WBC 20.16 X1000 (4.8-10.8)
[2019-01-09] MEDS: NEXIUM IV SCH (06:51)
--- NOTE | 2019-01-09 07:03 | HEMO/ONC PROGRESS NOTE ---
DATE: 01/08/2019 SUBJECTIVE: The patient has not had any further nausea over the last 24 hours. She has been off her tube feeds. She reports that she is feeling weak. She has not gotten out of bed. Physical Therapy apparently came to work with her but she was tired at that time. She feels that her bowels are starting to wake up and she feels activity. She is not passing gas so far. PHYSICAL EXAMINATION: Vitals: Temperature 97.5 degrees, pulse 105, blood pressure 115/73. HEENT: Eyes, EOMI, PERRLA. Anicteric. Mucous membranes appear mildly dry. Neck: Supple without JVD, thyromegaly, or nodules. Cardiac: Regular rate and rhythm. Normal S1, S2. Chest: Clear to auscultation. Abdomen: Protuberant, soft, nontender. Bowel sounds are sluggish. Extremities: In SCDs. LABORATORY DATA: White count 17.8, hemoglobin 10.5, platelets 500,000. BUN 55, creatinine 1.2. ASSESSMENT AND PLAN: 1. Metastatic gastric adenocarcinoma, with mesenteric and peritoneal implants: I discussed her prognosis and further management today again. She continues to maintain her decision that she wants to pursue chemotherapy. She understands unless her feeding issues resolve, I do not plan to give her any chemotherapy. 2. Malignant ascites, status post long-term drainage catheter. 3. Intractable nausea and vomiting for the last 6 weeks: Continue Zofran 16 mg IV daily. Continue Reglan and Phenergan on an as needed basis. 4. DVT prophylaxis: She is on Lovenox at the current time. Monitor potassium. She had hyperkalemia due to suspected renal tubular acidosis from Lovenox. 5. Nutrition: The patient is status post J-tube. Plan is to initiate tube feeds later today. Plan to go slow. Hopefully she will tolerate this well. 6. Peritonitis: Appreciate Dr. Stone' input. She is on Zosyn, day #2. White count is trending down. This is a difficult situation. I will discuss this further with Dr. Stone. cc: Edmond Oh MD [facility]
[2019-01-09 07:10] LABS: CALCIUM 7.8 mg/dL (8.8-10.2); CREATININE 1.2 mg/dL (0.5-0.9); POTASSIUM 4.7 mmol/L (3.5-5.1)
[2019-01-09] MEDS: PERIDEX MT SCH ×2 (08:03→21:02)
--- NOTE | 2019-01-09 10:33 | Diag Imaging Result Doc PS360 ---
EXAM: ABDOMEN FLAT/UPRIGHT INDICATION: ileus vs obstruction TECHNIQUE: 2 views COMPARISON: 01/08/2019 FINDINGS: Midline skin jannette and a left-sided drainage catheter are in stable positions. Gaseous distention of multiple loops of small bowel is again noted that is essentially stable most likely representing postsurgical ileus. There is a fair amount stool in the ascending and rectosigmoid colon that is unchanged. The abdomen is stable, otherwise. IMPRESSION: Essentially stable gaseous distention of small bowel. Electronically signed by Adams Ivory 01/09/2019 10:31 AM
[2019-01-09] MEDS ORDERED: FLEET MINERAL OIL ENEMA PR ONE (10:59)
[2019-01-09] MEDS: CLINIMIX E 4.25%-5% SOLUTION 1,000 ML IV SCH ×2 (11:44→22:03)
--- NOTE | 2019-01-09 12:16 | INFECTIOUS DISEASE PROGRESS NO ---
DATE: 01/09/2019 PRESENT ILLNESS: Patient has peritonitis. MEDICATIONS: This is day 3 of treatment with Zosyn. PHYSICAL EXAMINATION: Vital Signs: Temperature is 97.7 degrees, pulse 108, respirations 15, blood pressure 118/74. General: This is an ill-appearing elderly female. She is in no acute distress but she does not look like she feels very good. Head/eyes/ears/nose/throat: She can hear my spoken words and see near objects. She does not have any white coating on her tongue neck no pain with movement of the neck. Lungs: Clear to auscultation. Cardiovascular: Heart rate is regular. Abdomen: Soft and only slightly tender. The patient has 2 drainage tubes coming out from the abdomen. Neurologic: The patient is awake. She is sitting in a chair now. There is no tremor. She is able to talk in a coherent fashion. LAB AND X-RAY: There is no new radiographic study. CBC shows a white count of 20,160, hemoglobin 10.5, and platelet count 493,000. Creatinine is 1.2. GFR is 44. ASSESSMENT AND PLAN: Patient has peritonitis. She unfortunately also has malignant ascites. For now I am going to continue with Zosyn. COMORBIDITIES: The patient has metastatic gastric cancer. She also has diabetes mellitus and gastroesophageal reflux disease. cc: Christopher Stone MD
--- NOTE | 2019-01-09 13:47 | NEPHROLOGY PROGRESS NOTE ---
DATE: 01/09/2019 SUBJECTIVE: Ms. Duque is resting quietly in bed. She states that she is feeling well today. OBJECTIVE: Her most recent vital signs: Temperature 97.7 degrees, blood pressure 116/67, heart rate 113, respirations are 14. She is on room air. Last recorded saturation 95%. The patient has recorded 1025 in, 1450 out. LABS: Sodium 131, potassium 4.7, chloride 101, CO2 16, BUN 65, creatinine 1.2 glucose conus is 129. The patient has an anion gap of 14. Her calcium is 7.8. White count 20.16, hemoglobin 10.5, hematocrit 31.1 with a platelet count of 493,000. PHYSICAL EXAMINATION: General: This is a 73-year-old white female resting quietly in bed. She appears in no acute distress. Skin: Warm and dry. HEENT: Normocephalic, atraumatic. Conjunctiva is pale. She has CARLOS. Mucous membranes are dry. Neck: Supple. Trachea midline. No evidence of JVD. Cardiovascular: Regular rate and rhythm. No murmur or gallop appreciated. Lungs: Clear to auscultation bilaterally. Equal excursion on room air. Abdomen: Soft, nontender, positive bowel sounds. Her peritoneal catheter remains dry and intact. Her PEG tube is soft, dry and intact. Positive bowel sounds present. Genitourinary: Not inspected. Patient has Lowe catheter with adequate urine out. Extremities: No edema, no clubbing or cyanosis. Neurological: Alert and oriented x3. ASSESSMENT AND PLAN: Acute kidney injury. Patient's BUN and creatinine have returned to her historical baseline. Adequate urine output documented. No indications for further follow-up. We will remain available if needed during her hospital stay. Otherwise, we will sign off at this time. I would like to thank you for allowing us to follow with this patient. Dictated by WILFREDO Bender for Manuel Driver MD Face to face encounter, data reviewed, discussed with Amadeo June on 01/09/19. I agree with the above assessment and plan of care. cc: WILFREDO Bender MD [facility]
--- NOTE | 2019-01-09 15:10 | GENERAL SURGERY PROGRESS NOTE ---
DATE: 01/09/2019 SUBJECTIVE: Feels okay. She says she is thirsty. Having some bowel function. No bowel movements. No fevers. No tachycardia. OBJECTIVE: Abdomen is soft. Dressing in place. J-tube is in place. LABORATORY DATA: I reviewed her labs. ASSESSMENT AND PLAN: This is a 73-year-old female with metastatic gastric cancer. J-tube is in place. Ileus has been slow to resolve. We will start trophic feeds tomorrow. She can have clear liquids by mouth as tolerated. cc: David Alaniz MD
--- NOTE | 2019-01-09 16:28 | PROGRESS NOTE ---
DATE: 01/09/2019 SUBJECTIVE: The patient states that she has not had a bowel movement yet. She states that she is very weak and does not feel good. OBJECTIVE: Vital Signs: Temperature 98.2 degrees, blood pressure 115/79, heart rate 110, respirations 16, O2 saturations 95% on room air. General: This is a chronically ill-appearing elderly female, lying in bed in no acute distress. Heart: S1, S2 normal. Tachycardic. Lungs: Equal air entry bilaterally. No wheezing. No rales. Abdomen: Hypoactive bowel sounds. Soft, mildly distended. Extremities: No edema, no cyanosis. Neurologic: The patient is alert and oriented x4. LABS: White blood cell count 20, hemoglobin 10, hematocrit 31, platelets 493. Sodium 131, potassium 4.7, chloride 101, CO2 16. BUN 65, creatinine 1.2, glucose 129. X-RAYS: Abdominal x-ray shows a postsurgical ileus. ASSESSMENT AND PLAN: 1. Ileus. The patient has not had a bowel movement yet. The patient did receive a Dulcolax suppository yesterday and a Fleets enema today. Will continue to monitor closely for improvement. Management as per the general surgeon. 2. Acute kidney injury. Stable. Will continue to monitor the patient's urine output and avoid nephrotoxic agents. 3. Metastatic gastric adenocarcinoma, status post jejunostomy tube placement. Aware. We are waiting for the patient's bowel function to return. Dr. Oh is following. 4. Leukocytosis. Continue with Zosyn as directed by Dr. Stone. 5. Peritonitis. Continue with the current antibiotic regimen. 6. Anemia. Stable. 7. Metabolic acidosis. Stable. 8. Severe protein calorie malnutrition. Hopefully, the patient's bowel function will return and tube feeds can be initiated soon. 9. Deconditioning. The patient has been encouraged to continue to work with physical therapy. cc: Oliva Shay MD [facility]
[2019-01-09] MEDS: MORPHINE IV PRN (20:36)
[2019-01-10 05:57] LABS: BASO% 0.5 % (0.0-0.8); EOS# 0.04 X1000 (0.0-0.7); EOS% 0.2 % (0.0-10.0); HEMATOCRIT 31.2 % (37.0-47.0); HEMOGLOBIN 10.3 g/dL (12.0-16.0); IMM GRAN# 1.65 X1000 (0.0-0.04); IMM GRAN% 8.8 % (0.0-0.5); LYMPH# 2.01 X1000 (1.2-3.4); LYMPH% 10.7 % (20.5-51.1); MCH 31.2 PG (27-31); MCV 94.5 FL (81-99); MONO# 1.57 X1000 (0.11-0.59); MONO% 8.4 % (1.7-9.3); MPV 10.1 FL (7.4-10.4); NEUT# 13.38 X1000 (1.4-6.5); NEUT% 71.4 % (42.2-75.2); PLT 444 X1000 (130-400); RDW 14.9 % (11.5-14.5); WBC 18.75 X1000 (4.8-10.8)
[2019-01-10 06:33] LABS: BANDS 3 % (0-1); LYMPHS 11 % (21-51); MONO 4 % (1-9); SEGS 80 % (42-75)
[2019-01-10] MEDS: ZOSYN 3.375 GM in NS 50 ML IV SCH ×5 (06:34→22:19)
[2019-01-10 06:35] LABS: AGAP 14; ALB/GLOB RATIO 0.5; ALBUMIN 1.6 g/dL (3.5-5.0); ALKALINE PHOSPHATASE 64 U/L (32-104); BUN 68 mg/dL (8-22); CALCIUM 8.2 mg/dL (8.8-10.2); CHLORIDE 98 mmol/L (98-107); COSMO 279; CREATININE 1.3 mg/dL (0.5-0.9); ESTIMATED GFR 40; GLUCOSE 138 mg/dL (70-104); GOT 16 U/L (10-30); GPT < 5 U/L (10-36); POTASSIUM 5.1 mmol/L (3.5-5.1); SODIUM 128 mmol/L (136-145); TCO2 16 mmol/L (25-35); TOTAL BILIRUBIN 0.15 mg/dL (0.20-1.00); TOTAL PROTEIN 4.7 g/dL (6.3-8.3)
[2019-01-10] MEDS: HEPARIN SUBQ SCH ×4 (06:39→22:19)
[2019-01-10] MEDS: HUMALOG SUBQ SCH ×3 (06:49→22:21)
[2019-01-10] MEDS: NEXIUM IV SCH ×2 (06:53→07:09)
--- NOTE | 2019-01-10 07:12 | HEMO/ONC PROGRESS NOTE ---
DATE: 01/09/2019 SUBJECTIVE: The patient reports that today, she has no nausea. She believes her stomach is waking up. She is passing a little gas. Dr. Alaniz is seeing her as well. OBJECTIVE: Vital Signs: Temperature 98.0 degrees, pulse 108, blood pressure 127/72. Eyes: Anicteric. Mucous membranes appear markedly dry. Neck: Supple without JVD. Cardiac: Regular rate and rhythm. Normal S1, S2. Chest: Clear to auscultation. Abdomen: Protuberant, soft, nontender. Extremities: Mild edema. LABORATORY DATA: White count 20.1, hemoglobin 10.5, platelets 493,000. BUN 55, creatinine 1.2. ASSESSMENT AND PLAN: 1. 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 I discussed the prognosis again. If her nutrition status does not improve and we cannot accomplish adequate feeding with jejunostomy tube, she understands that she will not be a candidate for palliative therapy, and we may have to turn down her wishes of treatment for her cancer. She nods her head in understanding. 2. Malignant ascites, status post long-term drainage. 3. Peritonitis, on antibiotics. Appreciate Dr. Stone. 4. Intractable nausea and vomiting. Continue Zofran intravenously daily. She will take reglan PRN. 5. Nutrition. Status post jejunostomy tube placement. Dr. Alaniz wants to start tube feeds at a slow rate tomorrow. cc: Edmond Oh MD [facility]
[2019-01-10] MEDS: PERIDEX MT SCH ×2 (09:18→22:19)
--- NOTE | 2019-01-10 11:57 | GENERAL SURGERY PROGRESS NOTE ---
DATE: 01/10/2019 SUBJECTIVE: Some nausea with p.o. last night but she continues to pass gas in increasing frequency. OBJECTIVE: Abdomen is soft. Incision is intact. J tube is in place. I reviewed her labs and vital signs. She also had some drainage from her port access site what was being placed through the port. ASSESSMENT AND PLAN: We will start trophic tube feeds today with 10 mL of feeds, 10 mL of flush every hour as tolerated. We will advance over the next 48 hours. I de-accessed her port and placed a dressing here. I suspect that this was infiltrated which may be the issue. I have talked to the nurse about access and different location from the previous puncture site and we can reassess this. I do not see any signs of cellulitis. We will continue to follow along. cc: David Alaniz MD
--- NOTE | 2019-01-10 12:54 | Diag Imaging Result Doc PS360 ---
EXAM: CHEST-PORTABLE 01/10/2019 HISTORY: dyspnea TECHNIQUE: AP portable at 1243 COMMENT: There is no evidence of acute cardiac or pulmonary disease. Compared to 01/06/2019 there has been no significant change. IMPRESSION: Stable chest. Electronically signed by Bernardo Brennan 01/10/2019 12:51 PM
--- NOTE | 2019-01-10 14:07 | INFECTIOUS DISEASE PROGRESS NO ---
DATE: 01/10/2019 PRESENT ILLNESS: The patient has peritonitis as well as malignant ascites. MEDICATIONS: The patient is receiving Zosyn now for 4 days. PHYSICAL EXAMINATION: Vital Signs: Temperature is 97.8 degrees, pulse 108, respirations 21, blood pressure is 109/64. General: This is an ill-appearing elderly female. She is in no acute distress, but she certainly does not feel very good and she does not want to eat either. Head/eyes/ears/nose/throat: She can hear my spoken words and see near objects. She does not have any white patches in her mouth. Neck: She does not have any pain with movement. Lungs: Clear to auscultation. Cardiovascular: Heart rate is regular. Abdomen: Soft and not tender. The patient has [address] Both sites are not erythematous or purulent. The patient also has a midline incision which is intact. Thorax: The patient has a incision on her right chest where her Port-A-Cath was removed. The incision is intact and there is no erythema. Neurologic: The patient is awake. She can move her extremities. There is no tremor. LAB AND X-RAY: Chest x-ray shows no acute disease. Creatinine is 1.3, GFR is 40. [place] [address], hemoglobin is 10.3, and platelet count is 444,000. ASSESSMENT AND PLAN: Patient has peritonitis as well as malignant ascites. For now, I am going to continue Zosyn. Her white blood cell count did come down a little bit today. COMORBIDITIES: Metastatic gastric cancer, diabetes mellitus, and gastroesophageal reflux disease. cc: Christopher Stone MD
--- NOTE | 2019-01-10 16:11 | PROGRESS NOTE ---
DATE: 01/10/2019 SUBJECTIVE: The patient reports that she still has not had a bowel movement. Her port started leaking this morning. OBJECTIVE: Vital Signs: Temperature 97.8 degrees, blood pressure 109/64, heart rate 108, respirations 21, O2 saturation is 98% on room air. General: This is a chronically ill-appearing, elderly female lying in bed, in no acute distress. Heart: S1, S2 normal. Tachycardic. Lungs: Equal air entry bilaterally. No wheezing. No rales. No rhonchi. Abdomen: Positive bowel sounds. Soft, nontender, nondistended. Extremities: Trace pedal edema. Neurologic: The patient is alert and oriented x4. LABS: White blood cell count 18, hemoglobin 10, hematocrit 31, platelets 444,000. Sodium 128, potassium 5.1, chloride 98, CO2 16, BUN 68, creatinine 1.3, glucose 138. Chest x-ray: No acute disease. ASSESSMENT AND PLAN: 1. Ileus. The patient will be started on a slow rate of tube feeds today. We will monitor her response. Management as per the general surgeon. 2. Acute kidney injury. The creatinine is slightly elevated. We will start the patient on normal saline. 3. Hyperkalemia. Will discontinue the clinimix. 4. Malignant ascites with peritonitis. Continue on Zosyn. 5. Metastatic gastric adenocarcinoma status post jejunostomy tube placement. Aware. 6. Metabolic acidosis. Unchanged. 7. Severe protein calorie malnutrition. The patient will be started on tube feeds today at a slow rate. 8. Deconditioning. Continue with physical therapy. 9. Disposition. The patient is a full code. cc: Oliva Shay MD [facility]
[2019-01-10] MEDS: NS 1,000 ML IV SCH (18:30)
[2019-01-10] MEDS: ZOFRAN IV PRN (22:01)
[2019-01-11] MEDS: MORPHINE IV PRN ×2 (04:01→21:06)
[2019-01-11] MEDS: HEPARIN SUBQ SCH ×3 (04:01→21:06)
[2019-01-11] MEDS: ZOFRAN IV PRN ×2 (04:01→21:06)
[2019-01-11] MEDS: ZOSYN 3.375 GM in NS 50 ML IV SCH ×4 (04:02→23:50)
[2019-01-11] MEDS: HUMALOG SUBQ SCH ×4 (06:04→20:11)
[2019-01-11] MEDS: NEXIUM IV SCH (06:05)
[2019-01-11 07:19] LABS: BASO# 0.06 X1000 (0.0-0.2); BASO% 0.3 % (0.0-0.8); EOS# 0.01 X1000 (0.0-0.7); EOS% 0.1 % (0.0-10.0); HEMATOCRIT 32.5 % (37.0-47.0); HEMOGLOBIN 10.7 g/dL (12.0-16.0); IMM GRAN# 1.32 X1000 (0.0-0.04); IMM GRAN% 7.1 % (0.0-0.5); LYMPH# 1.52 X1000 (1.2-3.4); LYMPH% 8.2 % (20.5-51.1); MCH 31.5 PG (27-31); MCHC 32.9 g/dL (33-37); MCV 95.6 FL (81-99); MONO# 1.14 X1000 (0.11-0.59); MONO% 6.1 % (1.7-9.3); MPV 9.8 FL (7.4-10.4); NEUT# 14.54 X1000 (1.4-6.5); NEUT% 78.2 % (42.2-75.2); PLT 435 X1000 (130-400); RDW 15.3 % (11.5-14.5); WBC 18.59 X1000 (4.8-10.8)
--- NOTE | 2019-01-11 07:26 | Diag Imaging Result Doc PS360 ---
ABDOMEN FLAT/UPRIGHT - 01/11/2019 INDICATION: ileus COMPARISON: 01/09/2019 FINDINGS: There are two stable catheters in the abdomen. Stable skin jannette. There has been slight improvement in the extensive gas distended small bowel loops compatible with severe ileus or obstruction. No colon or rectal gas. IMPRESSION: Slight improvement from prior. Persistent severe small bowel obstruction or ileus. Electronically signed by Sha Landry 01/11/2019 7:23 AM
[2019-01-11 07:48] LABS: ALB/GLOB RATIO 0.6; ALBUMIN 1.9 g/dL (3.5-5.0); CALCIUM 7.7 mg/dL (8.8-10.2); CREATININE 1.4 mg/dL (0.5-0.9); POTASSIUM 4.6 mmol/L (3.5-5.1); TOTAL BILIRUBIN 0.19 mg/dL (0.20-1.00); TOTAL PROTEIN 4.9 g/dL (6.3-8.3)
[2019-01-11] MEDS: NS 1,000 ML IV SCH ×2 (09:51→19:06)
[2019-01-11] MEDS: PERIDEX MT SCH ×2 (09:53→21:05)
[2019-01-11] MEDS ORDERED: DULCOLAX PR ONE (13:20)
--- NOTE | 2019-01-11 16:32 | PROGRESS NOTE ---
DATE: 01/11/2019 SUBJECTIVE: The patient is resting comfortably in bed. The patient reports that she had a bowel movement early this morning. She denies having any nausea or vomiting. OBJECTIVE: Vital Signs: Temperature 97.8 degrees, blood pressure 125/62, heart rate 106, respirations 20, O2 saturation is 97% on room air. General: This is a chronically ill-appearing, elderly female lying in bed, in no acute distress. Heart: S1, S2 normal. Tachycardic. Lungs: Equal air entry bilaterally. Clear to auscultation bilaterally. Abdomen: Positive bowel sounds. Soft, nontender. Extremities: No edema. No cyanosis. No calf tenderness. Neurologic: The patient is alert and oriented x4. LABS: White blood cell count 18, hemoglobin 10, hematocrit 32, platelets 435,000. Sodium 130, potassium 4.6, chloride 20, CO2 20, BUN 59, creatinine 1.4, glucose 115, calcium 7.7, AST 19, ALT 6, alkaline phosphatase 67. Abdominal x-ray shows slight improvement. Distended small bowel loops compatible with severe ileus. ASSESSMENT AND PLAN: 1. Ileus. Will restart the patient's tube feeds again and monitor her response. We will also order a Dulcolax suppository. General Surgery is following. 2. Acute kidney injury. Multifactorial. Continue with normal saline. We will repeat the urine studies. 3. Hyponatremia. Slightly improved. Continue with normal saline. 4. Peritonitis. The patient is currently on Zosyn as directed by Dr. Stone. 5. Omental caking with malignant ascites. Aware. 6. Metastatic gastric adenocarcinoma status post jejunostomy tube placement. Aware. 7. Metabolic acidosis. Slightly improved today. 8. Severe protein calorie malnutrition. Continue to implement slow tube feeds as tolerated. 9. Deconditioning. Continue with physical therapy. 10. Disposition. The patient remains a full code. Continue with physical therapy. cc: Oliva Shay MD [facility]
[2019-01-11] MEDS: ZYVOX 600 MG/D5W 600 MG/300 ML IVPB IV SCH (19:03)
--- NOTE | 2019-01-11 19:11 | INFECTIOUS DISEASE PROGRESS NO ---
DATE: 01/11/2019 PRESENT ILLNESS: Ms. Duque is being treated for a peritonitis with malignant ascites and leukocytosis. MEDICATIONS: She is on day 5 of Zosyn 3.375 g IV every 6 hours. PHYSICAL EXAMINATION: Vital Signs: Temperature is 97.8 degrees, pulse rate 106, respiratory rate 20, blood pressure 125/62, O2 saturation is 97% on room air. General: This is a chronically ill appearing, elderly female. She is lying in the bed, currently in no acute distress. HEENT: Atraumatic, normocephalic. Oral mucous membranes are pink and moist. Conjunctivae are pale. Neck: Supple. Trachea is midline. Cardiovascular: Heart rate and rhythm are regular and fast, sinus tachycardia on the monitor. Respiratory: Lung sounds are clear to auscultation bilaterally. No work of breathing is noted. Abdomen: Soft, round, and mildly tender. There is a drain in place with a dressing over top to the right upper quadrant, as well as a midline incision which has jannette dry and intact with no redness, edema, or drainage noted. She also has a jejunostomy tube in place with tube feedings infusing. Neurologic: She is awake, alert, and appropriate, able to move all her extremities in the bed with generalized weakness noted. LABORATORY AND X-RAY: Today, her white count is 18.59, hemoglobin 10.7, and platelet count 435,000. Creatinine is 1.4. GFR 37. Her total bilirubin is 0.19, AST 19, ALT 6, alkaline phosphatase 67. An abdominal x-ray done this morning shows persistent, severe small-bowel obstruction or ileus. ASSESSMENT AND PLAN: Ms. Duque is being treated for peritonitis. Unfortunately, we have not seen much improvement in her white count on the Zosyn after 5 days. Today, we will add Zyvox 600 mg intravenously every 12 hours and continue the Zosyn as ordered. We will go ahead and order blood work in the morning as well. These plans have been discussed with and recommended by Dr. Stone. COMORBIDITIES: for Ms. Duque include that she is elderly, with metastatic gastric adenocarcinoma, diabetes mellitus, and gastroesophageal reflux disease. Dictated by WILFREDO Wyatt for Christopher Stone MD cc: Christopher Stone MD [facility]
[2019-01-11] MEDS: DULCOLAX PR SCH (21:06)
[2019-01-12] MEDS: MORPHINE IV PRN (00:53)
[2019-01-12] MEDS: NS 1,000 ML IV SCH ×3 (00:53→19:19)
[2019-01-12] MEDS: ZOSYN 3.375 GM in NS 50 ML IV SCH ×2 (04:44→10:54)
[2019-01-12] MEDS: ZYVOX 600 MG/D5W 600 MG/300 ML IVPB IV SCH (04:45)
[2019-01-12] MEDS: HEPARIN SUBQ SCH ×3 (04:45→22:35)
[2019-01-12 05:23] LABS: URINE SOURCE CLEAN CATCH
[2019-01-12 05:24] LABS: BILIRUBIN URINE NEGATIVE (NEGATIVE); BLOOD URINE SMALL (NEGATIVE); COLOR YELLOW; GLUCOSE URINE NEGATIVE (NEGATIVE); KETONE URINE NEGATIVE (NEGATIVE); LEUKOCYTES URINE NEGATIVE (NEGATIVE); NITRITE URINE NEGATIVE (NEGATIVE); PH URINE 5.5; PROTEIN URINE 30 mg/dL (NEGATIVE); SP GRAVITY URINE 1.027; TURBIDITY URINE HAZY (CLEAR); UROBILINOGEN URINE NORMAL (NORMAL)
[2019-01-12 05:29] LABS: UR EPITHELIAL CELLS <10 /HPF (<10); URINE BACTERIA NEGATIVE /HPF; URINE RBC TNTC /HPF (<10); URINE WBC <10 /HPF (<10)
[2019-01-12 05:39] LABS: UR CREAT RANDOM 67.3 mg/dL (11-20); UR PROT RANDOM 41.9 mg/dL; UR SODIUM < 10 mmoll
[2019-01-12 06:25] LABS: URINE CASTS NONE SEEN; URINE CRYSTALS NONE SEEN; URINE SMALL ROUND CELLS NONE SEEN; URINE YEAST PRESENT
[2019-01-12] MEDS: NEXIUM IV SCH (06:29)
[2019-01-12] MEDS: HUMALOG SUBQ SCH ×4 (06:29→21:50)
--- NOTE | 2019-01-12 07:04 | GENERAL SURGERY PROGRESS NOTE ---
DATE: 01/12/2019 SUBJECTIVE: Patient seemed to not tolerate her tube feeds and so they have been stopped. She is having recorded bowel movements. She feels like she is getting full. From a surgical point of view I would like to try to keep her on tube feeds and then slowly increase them, but otherwise continue to monitor. Nothing new to add at this point. cc: Nghia Kent MD
[2019-01-12 07:39] LABS: HEMATOCRIT 33.3 % (37.0-47.0); HEMOGLOBIN 10.8 g/dL (12.0-16.0); MCH 31.4 PG (27-31); MCHC 32.4 g/dL (33-37); MCV 96.8 FL (81-99); MPV 9.9 FL (7.4-10.4); RBC 3.44 XMIL (4.2-5.4); RDW 15.7 % (11.5-14.5); WBC 19.25 X1000 (4.8-10.8)
[2019-01-12 08:33] LABS: CALCIUM 7.6 mg/dL (8.8-10.2); CREATININE 1.4 mg/dL (0.5-0.9); POTASSIUM 4.4 mmol/L (3.5-5.1)
[2019-01-12] MEDS: PERIDEX MT SCH ×2 (10:02→22:35)
[2019-01-12] MEDS: REGLAN IV SCH ×3 (11:23→22:35)
--- NOTE | 2019-01-12 14:03 | PROGRESS NOTE ---
DATE: 01/12/2019 SUBJECTIVE: The patient stated that her stomach started to feel full early this morning, so her feedings were stopped at 1:00 this morning. She states that she feels a little bit better this morning. She has been having bowel movements. OBJECTIVE: Vital Signs: Temperature 98.3 degrees, blood pressure 98/69, heart rate 100, respirations 17, and O2 saturation 97% on room air. General: This is a chronically ill-appearing elderly female lying in bed in no acute distress. Heart: S1, S2 normal. Tachycardic. Lungs: Equal air entry bilaterally. No wheezing. No rales. Abdomen: Positive bowel sounds. Soft, nontender, and nondistended. Extremities: No edema. No cyanosis. Neurologic: The patient is alert and oriented x4. LABORATORY: White blood cell count 19, hemoglobin 10, hematocrit 33, and platelets 441,000. Sodium 132, potassium 4.4, chloride 98, CO2 19, BUN 49, creatinine 1.4, and glucose 156. ASSESSMENT AND PLAN: 1. Ileus. We will start a trial of Reglan, and see if that will help to move the feeding through the patient's GI tract. We will also continue with Dulcolax suppositories. General Surgery is following. 2. Acute kidney injury. Stable. We will continue with normal saline for now. 3. Hyponatremia slightly improved. We will continue with normal saline. 4. Peritonitis. The patient remains on Zosyn. Dr. Stone will add another agent to cover gram- positive organisms. 5. Omental caking with malignant ascites. Aware. 6. Metastatic gastric adenocarcinoma status post jejunostomy tube placement. Aware. 7. Severe protein calorie malnutrition. Continue to implement slow tube feeds as tolerated. 8. Deconditioning. Continue with physical therapy. 9. Disposition. The patient is a full code. Continue with physical therapy as tolerated. cc: Oliva Shay MD MTDD
[2019-01-12] MEDS ORDERED: TEFLARO IV SCH (14:15)
--- NOTE | 2019-01-12 15:11 | INFECTIOUS DISEASE PROGRESS NO ---
DATE: 01/12/2019 PRESENT ILLNESS: The patient is being treated for peritonitis with malignant ascites. She also has a leukocytosis. MEDICATIONS: Currently, the patient is on day 6 of Zosyn. PHYSICAL EXAMINATION: Vital Signs: Temperature is 98.3 degrees, pulse 100, respirations 17, blood pressure 98/69. General: This is a chronically ill-appearing, elderly female. She is in no acute distress. Head, eyes, ears, nose, and throat: She can hear my spoken words and see near objects. There is no drainage from the nose or ears. She does not have any white patches in her mouth. Neck: No meningismus. Lungs: Clear to auscultation. Cardiovascular: Heart rate is regular. Abdomen: Soft and nontender. The patient's midline incision is intact on either side of the incision. There are tubes present. The tube sites are not erythematous or purulent. Neurologic: The patient is alert. She can move her extremities. There is no tremor. Her memory as regarding her medical history is intact. LAB AND X-RAY: There is no new radiographic study. CBC shows a white count of 19,250, hemoglobin 10.8, and platelet count 441,000. Creatinine is 1.4. GFR is 37. Urinalysis does not show any white cells or bacteria. ASSESSMENT AND PLAN: The patient has peritonitis with malignant ascites and an associated leukocytosis. My plan is to discontinue Zosyn and place the patient on ceftaroline. COMORBIDITIES: The patient is elderly. She has metastatic gastric adenocarcinoma, diabetes mellitus, and gastroesophageal reflux disease. cc: Christopher Stone MD
[2019-01-12] MEDS: TEFLARO 400 MG in NS 250 ML IV SCH (15:43)
[2019-01-12] MEDS: DULCOLAX PR SCH (22:36)
[2019-01-13] MEDS: TEFLARO 400 MG in NS 250 ML IV SCH ×2 (02:53→15:34)
[2019-01-13] MEDS: NS 1,000 ML IV SCH ×2 (03:07→12:43)
[2019-01-13] MEDS: REGLAN IV SCH (06:19)
[2019-01-13] MEDS: NEXIUM IV SCH (06:19)
[2019-01-13] MEDS: HEPARIN SUBQ SCH ×3 (06:19→20:39)
[2019-01-13] MEDS: HUMALOG SUBQ SCH ×4 (07:04→20:39)
--- NOTE | 2019-01-13 07:30 | Diag Imaging Result Doc PS360 ---
ABDOMEN FLAT/UPRIGHT - 01/13/2019 INDICATION: ileus COMPARISON: 01/11/2019 FINDINGS: Stable catheters in the abdomen. There is no significant change in the numerous gas-distended loops of small bowel compatible with obstruction. No colon or rectal gas. IMPRESSION: No change in the small bowel obstruction. Electronically signed by Sha Landry 01/13/2019 7:28 AM
[2019-01-13 07:57] LABS: BASO# 0.05 X1000 (0.0-0.2); BASO% 0.2 % (0.0-0.8); HEMATOCRIT 35.1 % (37.0-47.0); HEMOGLOBIN 11.5 g/dL (12.0-16.0); IMM GRAN# 0.79 X1000 (0.0-0.04); IMM GRAN% 3.8 % (0.0-0.5); LYMPH# 1.29 X1000 (1.2-3.4); LYMPH% 6.2 % (20.5-51.1); MCH 31.4 PG (27-31); MCHC 32.8 g/dL (33-37); MCV 95.9 FL (81-99); MONO% 4.8 % (1.7-9.3); MPV 10.1 FL (7.4-10.4); NEUT# 17.82 X1000 (1.4-6.5); RBC 3.66 XMIL (4.2-5.4); RDW 15.8 % (11.5-14.5)
[2019-01-13 08:22] LABS: ALBUMIN 2.1 g/dL (3.5-5.0); CALCIUM 7.6 mg/dL (8.8-10.2); CREATININE 1.4 mg/dL (0.5-0.9); PHOSPHORUS 4.1 mg/dL (2.7-4.5)
[2019-01-13 09:21] LABS: ANISOCYTOSIS 2+; BANDS 2 % (0-1); LYMPHS 7 % (21-51); MONO 5 % (1-9); POLYCHROM 1+; SEGS 86 % (42-75)
[2019-01-13 09:22] LABS: HOWELL-JOLLY BODIES OCCASIONAL; LARGE PLATELETS OCCASIONAL
[2019-01-13 09:23] LABS: PLT 452 X1000 (130-400); WBC 20.95 X1000 (4.8-10.8)
[2019-01-13] MEDS: PERIDEX MT SCH ×2 (09:51→20:39)
--- NOTE | 2019-01-13 10:12 | PROGRESS NOTE ---
DATE: 01/13/2019 SUBJECTIVE: The patient states that she had a little bit of nausea this morning, but otherwise states that she does not feel full and appears to be tolerating the tube feed at the lower rate. The patient, however, has had 4 liquid stools this morning. OBJECTIVE: Vital Signs: Temperature 97.6 degrees, blood pressure 109/74, heart rate 102, respirations 15, O2 saturation 97% on room air. Intake 1.5 L. General: This is a chronically ill-appearing elderly female lying in bed in no acute distress. Heart: S1, S2 normal. Tachycardic. Lungs: Equal air entry bilaterally. No wheezing. No rales. No rhonchi. Abdomen: Positive bowel sounds. Soft, nontender, nondistended. Extremities: Trace pedal edema. No cyanosis. No calf tenderness. Neurologic: The patient is alert and oriented x4. LABS: White blood cell count 20, hemoglobin 11, hematocrit 35, platelets 452,000. Sodium 131, potassium 4, chloride 100, CO2 16, BUN 46, creatinine 1.4, glucose 147, calcium 7.6. Abdominal x-ray shows gas distended loops of small bowel. ASSESSMENT AND PLAN: 1. Ileus. Improved. The patient appears to be responding to the trial of Reglan. However, she is having multiple loose stools. Will decrease the dose of the Reglan and continue with the slow tube feeds. General Surgery is following. 2. Acute kidney injury. Stable. Continue with IV fluids. 3. Hyponatremia. Stable. 4. Metabolic acidosis. Unchanged. 5. Leukocytosis. The patient is having loose stools. Will check stool for Clostridium difficile. 6. Omental caking with malignant ascites. Aware. 7. Peritonitis. The patient is currently on ceftaroline as directed by Dr. Stone. 8. Metastatic gastric adenocarcinoma status post jejunostomy tube placement. Aware. 9. Deconditioning. Continue with physical therapy. 10. Severe protein calorie malnutrition. The patient is on slow tube feeds. 11. Disposition. Continue with physical therapy as tolerated. The patient is a full code. I updated the patient and her about the treatment plan. cc: Oliva Shay MD [facility]
[2019-01-13] MEDS ORDERED: NS 1,000 ML ONE (12:20)
--- NOTE | 2019-01-13 14:37 | GENERAL SURGERY PROGRESS NOTE ---
DATE: 01/13/2019 SUBJECTIVE: The patient is doing okay today. She denies abdominal pain. She did have a little episode of nausea earlier this morning, but otherwise she has not vomited, and her tube feeds have been running at 10 mL an hour since yesterday. She has had several loose stools. OBJECTIVE: Vital signs: She is afebrile. Vital signs are stable. Cardiovascular: Regular rate and rhythm. Gastrointestinal: Soft, nontender, nondistended. LABORATORY DATA: Reviewed. IMAGING: She had an abdominal x-ray today which shows persistent dilated small bowel loops consistent with obstruction or ileus. ASSESSMENT AND PLAN: A 73-year-old female with metastatic gastric cancer, now status post jejunostomy. She has been poorly tolerant of J-tube feeds. Reglan has been started recently to try to encourage better tolerance of her feeds. I think she has a persistent ileus given her bowel function and x-ray findings. I think we can increase her tube feeds to 20 mL an hour today and observe how she tolerates this. If she does not tolerate it well, I would go back up to her previous dose of Reglan. cc: Ambrocio Florian MD
[2019-01-13] MEDS ORDERED: REGLAN IV SCH (21:00)
[2019-01-13] MEDS: MORPHINE IV PRN (23:58)
[2019-01-14] MEDS: NS 1,000 ML IV SCH (02:19)
[2019-01-14] MEDS: TEFLARO 400 MG in NS 250 ML IV SCH ×2 (03:51→14:49)
[2019-01-14] MEDS: HEPARIN SUBQ SCH ×3 (06:00→20:16)
[2019-01-14] MEDS: HUMALOG SUBQ SCH ×4 (06:43→21:58)
[2019-01-14] MEDS: SODIUM CHLORIDE 0.9% INJ SCH (06:47)
[2019-01-14] MEDS: NEXIUM IV SCH (06:47)
[2019-01-14 07:47] LABS: HEMATOCRIT 32.7 % (37.0-47.0); HEMOGLOBIN 10.6 g/dL (12.0-16.0); MCH 31.8 PG (27-31); MCHC 32.4 g/dL (33-37); MCV 98.2 FL (81-99); MPV 10.2 FL (7.4-10.4); RBC 3.33 XMIL (4.2-5.4); RDW 16.3 % (11.5-14.5); WBC 22.92 X1000 (4.8-10.8)
[2019-01-14 08:17] LABS: ALBUMIN 1.8 g/dL (3.5-5.0); CALCIUM 7.7 mg/dL (8.8-10.2); CREATININE 1.4 mg/dL (0.5-0.9); MAGNESIUM 2.2 mg/dL (1.5-2.7); PHOSPHORUS 3.8 mg/dL (2.7-4.5); POTASSIUM 4.4 mmol/L (3.5-5.1)
[2019-01-14] MEDS: PERIDEX MT SCH ×2 (10:09→20:16)
--- NOTE | 2019-01-14 12:57 | GENERAL SURGERY PROGRESS NOTE ---
DATE: 01/14/2019 SUBJECTIVE: The patient denies any significant abdominal pain. She has been tolerating her tube feeds at 20 mL an hour without nausea or vomiting. She has had several loose stools. OBJECTIVE: She is afebrile. Vital signs are stable.General: She is awake, alert, oriented x3. No acute distress. Gastrointestinal: Soft, nontender, nondistended. LABORATORY: White cell count 22, hemoglobin 10, hematocrit 33, electrolytes reviewed and stable. ASSESSMENT AND PLAN: A 73-year-old female with metastatic gastric cancer, status post jejunostomy tube placement and postoperative ileus. She seems to be improving. We will increase her tube feeds to 30 mL an hour and monitor for her tolerance. cc: Ambrocio Florian MD
--- NOTE | 2019-01-14 15:03 | PROGRESS NOTE ---
DATE: 01/14/2019 SUBJECTIVE: The patient is sitting up in a chair. She appears to be tolerating her tube feeds. OBJECTIVE: Vital Signs: Temperature 98.6 degrees, blood pressure 94/71, heart rate 116, respirations 18, O2 saturation 95% on room air. General: This is a chronically ill-appearing, elderly female sitting up in a chair in no acute distress. Heart: S1, S2 normal. Tachycardic. Lungs: Clear to auscultation bilaterally. Abdomen: Positive bowel sounds. Soft, nontender, nondistended. Extremities: No edema, no cyanosis. Neurologic: The patient is alert and oriented x4. LABS: White blood cell count 22, hemoglobin 10, hematocrit 32, platelets 392,000. Sodium 133, potassium 4.4, chloride 103, CO2 15, BUN 45, creatinine 1.4, glucose 134, albumin 1.8. ASSESSMENT AND PLAN: 1. Ileus. The patient appears to be tolerating her tube feeds. The rate was increased today. Continue to monitor closely. 2. Chronic kidney disease. Stable. 3. Hyponatremia. Slightly improved. 4. Metabolic acidosis. Unchanged. 5. Leukocytosis. This appears to be worse today. The stool for Clostridium difficile was noted to be negative yesterday. Continue with antibiotic therapy as directed by Dr. Stone. 6. Omental caking with malignant ascites. Aware. 7. Peritonitis. Continue on the current antibiotic regimen as directed by Dr. Stone. 8. Metastatic gastric adenocarcinoma status post jejunostomy tube placement. Aware. 9. Severe protein calorie malnutrition. The patient is on tube feeds. 10. Deconditioning. Continue with physical therapy. 11. Disposition. Continue with physical therapy as tolerated. cc: Oliva Shay MD [facility]
[2019-01-14] MEDS: ZOFRAN IV PRN (15:48)
[2019-01-15] MEDS: TEFLARO 400 MG in NS 250 ML IV SCH ×2 (02:33→15:00)
[2019-01-15] MEDS: HEPARIN SUBQ SCH ×3 (05:45→22:33)
[2019-01-15] MEDS: HUMALOG SUBQ SCH ×4 (05:59→22:14)
[2019-01-15] MEDS: SODIUM CHLORIDE 0.9% INJ SCH (06:00)
[2019-01-15] MEDS: NEXIUM IV SCH (06:00)
[2019-01-15 08:24] LABS: BASO# 0.03 X1000 (0.0-0.2); BASO% 0.1 % (0.0-0.8); HEMOGLOBIN 10.4 g/dL (12.0-16.0); IMM GRAN# 0.64 X1000 (0.0-0.04); IMM GRAN% 2.2 % (0.0-0.5); LYMPH# 0.98 X1000 (1.2-3.4); LYMPH% 3.4 % (20.5-51.1); MCH 31.2 PG (27-31); MCHC 32.5 g/dL (33-37); MCV 96.1 FL (81-99); MONO# 1.22 X1000 (0.11-0.59); MONO% 4.2 % (1.7-9.3); MPV 10.6 FL (7.4-10.4); NEUT# 26.36 X1000 (1.4-6.5); NEUT% 90.1 % (42.2-75.2); PLT 450 X1000 (130-400); RBC 3.33 XMIL (4.2-5.4); RDW 16.3 % (11.5-14.5); WBC 29.23 X1000 (4.8-10.8)
[2019-01-15 08:38] LABS: LYMPHS 2 % (21-51); MONO 8 % (1-9); SEGS 90 % (42-75)
[2019-01-15 08:41] LABS: ALBUMIN 2.1 g/dL (3.5-5.0); CALCIUM 7.6 mg/dL (8.8-10.2); CREATININE 1.8 mg/dL (0.5-0.9); PHOSPHORUS 4.3 mg/dL (2.7-4.5); POTASSIUM 4.8 mmol/L (3.5-5.1)
--- NOTE | 2019-01-15 09:21 | Diag Imaging Result Doc PS360 ---
EXAM: CHEST-1 VIEW INDICATION: dyspnea TECHNIQUE: One view COMPARISON: 01/10/2019 FINDINGS: The right chest port is stable. There is stable elevation of the right hemidiaphragm. The lungs are grossly clear. There is no discrete pleural fluid collection or pneumothorax. The cardiac silhouette is stable. IMPRESSION: Stable chest. Electronically signed by Adams Ivory 01/15/2019 9:19 AM
[2019-01-15] MEDS: PERIDEX MT SCH ×2 (10:28→22:33)
[2019-01-15] MEDS ORDERED: NITROGLYCERIN SL PRN (11:47)
[2019-01-15] MEDS ORDERED: SOLU-MEDROL IV ONE (12:23)
[2019-01-15] MEDS ORDERED: NS 250 ML IV ONE (12:27)
--- NOTE | 2019-01-15 12:41 | EKG Report ---
Test Performed on : 01/15/2019 12:21:12 PM Test Reason : CAT CALL Blood Pressure : / mmHG Vent. Rate : 112 BPM Atrial Rate : 112 BPM P-R Int : 180 ms QRS Dur : 076 ms QT Int : 338 ms P-R-T Axes : 019 005 031 degrees QTc Int : 461 ms Sinus tachycardia. Inferior infarct , age undetermined Cannot rule out Anterior infarct (cited on or before 29-DEC-2018) Abnormal ECG When compared with ECG of 29-DEC-2018 09:47, Questionable change in initial forces of Anterior leads Confirmed by Lobo Hameed MD ([id number]) on 01/17/2019 9:08:55 PM
[2019-01-15] MEDS ORDERED: G.I. COCKTAIL PO ONE (12:56)
[2019-01-15] MEDS: NS 1,000 ML IV SCH ×2 (13:06→22:34)
--- NOTE | 2019-01-15 13:25 | HEMO/ONC PROGRESS NOTE ---
DATE: 01/15/2019 SUBJECTIVE: The patient reports that she is feeling good this morning. She currently does not have any nausea. She had no significant events over the evening. She is tolerating her tube feeds at approximately 30 mL an hour. She has not had any diarrhea over the last 24 hours. OBJECTIVE: Vital Signs: Temperature 98.8 degrees, pulse rate 107, blood pressure 93/60, O2 saturation 94% on room air. She is in 0/10 pain. Physical Examination: General: Chronically ill-appearing female in no acute distress. Cardiovascular: Normal S1, S2. Tachycardic. Respiratory: Lungs are clear to auscultation. Gastrointestinal: Positive bowel sounds. Soft, nontender, nondistended. Extremities: Bilateral lower edema to her feet. Neurological: Awake, alert, and oriented x4. Laboratories: WBC 29.23, hemoglobin 10.4, hematocrit 32.0, platelet count 450,000, ANC 26.36. Sodium 135, potassium 4.8, creatinine 1.8, albumin 2.1. Chest x-ray was indicated for dyspnea. The lungs are grossly clear. Stable chest. ASSESSMENT AND PLAN: 1. 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 The patient is aware of her prognosis. She is tolerating her tube feeds at 30 mL per hour. Continue as tolerated. She understands that if her nutrition status does not improve, we cannot accomplish adequate feeding with her jejunostomy tube, she will not be a candidate for palliative therapy for the treatment of her cancer. 2. Malignant ascites, status post long-term drainage. 3. Peritonitis, on antibiotics per Dr. Stone. 4. Intractable nausea and vomiting. Continue Zofran intravenously daily. She will take Reglan as needed. 5. Nutrition. Status post jejunostomy tube placement. Dr. Alaniz is monitoring tube feeds. Dictated by WILFREDO Blanchard for Edmond Oh MD Patient seen and examined. Over the weekend she has been able to tolerate J- tube feedings which currently going at 30 mL an hour. She had some chest pains and hence has been moved to the ICU at this time. She continues to be weak. I have discussed DNR with her and she is agreeable. Continue current management for peritonitis. Dr. Stone is following closely. Despite broad-spectrum antibiotics, her white count continues to trend up. Her creatinine is trending up. Had a lengthy discussion with the patient and her family that her progress has been very poor. Family understands that her prognosis is poor. We will watch her closely in the next few days and decide if we need to simply proceed with hospice route despite patients intention for palliative chemotherapy. Edmond Oh M.D. cc: Edmond Oh MD MTDD
[2019-01-15 13:40] LABS: BLOOD TYPE ARTERIAL; SAMPLE BLOOD
[2019-01-15 13:41] LABS: ALLEN TEST YES; BE -13.1 mmoll (-3.0-3.0); HCO3-(ACT) 14.7 mmoll (20.0-26.0); O2(CT) 14.1 mL/dL (15.0-23.0); O2HB 96.6 % (95.0-99.0); PCO2(98.6) 21 mmHg (35-45); PO2(98.6) 113 mmHg (60-100); SAO2 99.3 % (95.0-100.0); THB 10.2 g/dL (11.5-17.4); pH(98.6) 7.33 (7.35-7.45)
[2019-01-15 13:45] LABS: MODALITY CANNULA
[2019-01-15] MEDS ORDERED: NS 0 ML ONE (13:52)
[2019-01-15 15:27] LABS: INR 1.1; PROTIME 14.4 Seconds (11.0-16.0)
[2019-01-15] MEDS: XOPENEX NEB INH SCH ×3 (15:43→21:04)
--- NOTE | 2019-01-15 17:26 | PROGRESS NOTE ---
DATE: 01/15/2019 SUBJECTIVE: The patient was noted to be complaining of chest pain and shortness of breath this afternoon. She was noted to be hypotensive and tachycardic and was transferred to the ICU for further treatment and evaluation. OBJECTIVE: Vital Signs: Temperature maximum 99.1, blood pressure 127/73, heart rate 108, respirations 15, O2 saturation is 100% on 2 L nasal cannula. General: This is a chronically ill- appearing elderly female, lying in bed in no acute distress. Heart: S1, S2 normal, tachycardic. Lungs: Clear to auscultation bilaterally. No wheezing. No rales. No rhonchi. Abdomen: Positive bowel sounds. Mildly distended. Extremities: 1+ edema. No cyanosis. No calf tenderness. Neurologic: The patient is alert and oriented x4. No focal neurologic deficits noted. DIAGNOSTIC STUDIES: White blood cell count 29, hemoglobin 10, hematocrit 32, platelets 450,000. Sodium 135, potassium 4.8, chloride 104, CO2 of 15, BUN 56, creatinine 1.8, glucose 128, calcium 7.6, albumin 2.1. Chest x-ray shows clear lungs. ASSESSMENT AND PLAN: 1. Chest pain. The patient's EKG is unremarkable. Also, her cardiac enzymes are negative. The patient has been seen by the line tester. 2. Ileus. Resolved. The patient is tolerating her tube feeds and having bowel movements. 3. Acute kidney injury on chronic kidney disease. The patient's creatinine is slightly elevated today. IV fluids have been restarted. 4. Omental caking with malignant ascites. Aware. 5. Metabolic acidosis. Unchanged. 6. Peritonitis. The patient is currently on antibiotics as directed by Dr. Stone. 7. Metastatic gastric adenocarcinoma status post routine ostomy tube placement. Aware. DISPOSITION: Dr. Oh met with the patient and her , and the patient is now a Do Not Resuscitate level 1. The patient and her family are interested in palliative care. We will consult with Palliative Care to discuss the possibility of initiating hospice. The patient will be transferred to the medical floor. cc: Oliva Shay MD [facility]
--- NOTE | 2019-01-15 20:02 | CARDIOLOGY CONSULTATION ---
DATE: 01/15/2019 CHIEF COMPLAINT ON PRESENTATION: Intractable nausea and vomiting. HISTORY OF PRESENT ILLNESS: Ms. Duque is a 73-year-old white female with a history of metastatic adenocarcinoma. She has been notable by Hematology to have mesenteric and peritoneal metastases. She apparently had a pressure type discomfort in her mid chest that began this morning while she was in a recumbent fashion. She cannot think of any provokers or palliators. It has been ongoing for roughly 2 hours. She has no other complaints. She has no cardiac history. She has had a prolonged hospitalization since the with an ileus, requiring eventual operative intervention on 01/03/2019, with an open J-tube placement. Subsequently, they have been advancing tube feeds. Infectious Disease has been involved, treating the patient for peritonitis. PAST MEDICAL HISTORY: Significant for: 1. Metastatic gastric adenocarcinoma. 2. Hypertension. 3. Hyperlipidemia. 4. Diabetes. 5. Reflux disease. 6. Osteoarthritis. SOCIAL HISTORY: . No tobacco, alcohol, or illicit drugs. FAMILY HISTORY: Father with Alzheimer disease. Grandmother with heart disease. REVIEW OF SYSTEMS: A 10 system review of systems is negative except for those things mentioned in HPI. PHYSICAL EXAMINATION: Vital Signs: She is afebrile. Her heart rate most recently was 107. It has been noted to be in the low 100s to 110s fairly consistently over the last several days. Blood pressure 91/62. General: She is in no acute distress. HEENT: Oropharynx is moist. Poor dentition. Eye examination is pink conjunctivae, white sclerae. Neck: No obvious thyromegaly or thyroid tenderness. Cardiovascular: She sounds to be in a regular rate and rhythm. She has no obvious murmurs. She has no S3. She has no lower extremity edema. Chest: Sounds clear bilaterally. She has no increased work of breathing. Abdomen: Soft, nontender, and nondistended. She has no obvious organomegaly. Skin: Warm and dry throughout. She has no obvious rashes. Neurological: She is moving all extremities well. She has no lateralizing deficits. PERTINENT DATA: Her EKG shows sinus tachycardia, 112 beats per minute, normal intervals. No ischemic changes. No evidence of infarct or injury pattern. Her chest x-ray demonstrates a stable elevation of the right hemidiaphragm. Lungs are clear. No discrete pleural fluid collection or pneumothorax. Cardiac silhouette is stable. White count 29, hematocrit 32, platelet count 450,000. She has a left shift. Her sodium is 135, potassium is 4.8, BUN 56, creatinine is 1.8 which is up from 1.4 yesterday. Her albumin level is 2.1. ASSESSMENT: Ms. Duque is a 73-year-old female with a history of metastatic adenocarcinoma with mesenteric and omental metastases. PLAN: At this point, she does not have any ST elevation on her electrocardiogram. Considering her other comorbid conditions and considerations at Hematology/Oncology, we are going to discontinue chemotherapy. I would not recommend any invasive cardiac evaluation. I would not recommend stress testing. Cardiac enzyme elevations can be trended, but at this point, unless she has ST elevation, I do not think there is any intervention we would perform on this patient considering her comorbid issues. I have given her a GI cocktail, considering the gastrointestinal issues that she is dealing with presently. Her chest x-ray appears clear, so it does not seem to demonstrate any evidence of pulmonary edema. cc: Rogers Multani MD
[2019-01-15] MEDS: NS NEB INH SCH (21:04)
--- NOTE | 2019-01-15 21:48 | GENERAL SURGERY PROGRESS NOTE ---
DATE: 01/15/2019 SUBJECTIVE: She had some respiratory event that was transient for which she was moved to the ICU. Family has elected to make her comfort care. OBJECTIVE: Her abdomen is soft. PLAN: I do think this is a reasonable course of action. Otherwise, whatever over the family's wishes, we can advance her tube feeds as tolerated. Port is leaking for some reason. We will leave it de-accessed for now. cc: David Alaniz MD
[2019-01-15] MEDS: TRANSDERM-SCOP TD SCH (22:33)
[2019-01-16] MEDS: TEFLARO 400 MG in NS 250 ML IV SCH ×2 (02:48→17:06)
[2019-01-16] MEDS: NS NEB INH SCH (03:25)
[2019-01-16] MEDS: XOPENEX NEB INH SCH ×4 (03:25→22:28)
[2019-01-16] MEDS: HUMALOG SUBQ SCH ×4 (06:15→21:21)
[2019-01-16] MEDS: HEPARIN SUBQ SCH ×3 (06:16→21:20)
[2019-01-16] MEDS: MORPHINE IV PRN ×2 (06:16→23:32)
[2019-01-16] MEDS: NEXIUM IV SCH (06:17)
[2019-01-16 07:35] LABS: BASO# 0.03 X1000 (0.0-0.2); BASO% 0.1 % (0.0-0.8); HEMATOCRIT 30.1 % (37.0-47.0); HEMOGLOBIN 9.7 g/dL (12.0-16.0); IMM GRAN# 0.45 X1000 (0.0-0.04); IMM GRAN% 1.8 % (0.0-0.5); LYMPH# 0.91 X1000 (1.2-3.4); LYMPH% 3.7 % (20.5-51.1); MCHC 32.2 g/dL (33-37); MCV 96.2 FL (81-99); MONO# 1.25 X1000 (0.11-0.59); MONO% 5.1 % (1.7-9.3); MPV 10.3 FL (7.4-10.4); NEUT# 21.82 X1000 (1.4-6.5); NEUT% 89.3 % (42.2-75.2); PLT 391 X1000 (130-400); RBC 3.13 XMIL (4.2-5.4); RDW 16.5 % (11.5-14.5); WBC 24.46 X1000 (4.8-10.8)
[2019-01-16 07:49] LABS: ALBUMIN 1.9 g/dL (3.5-5.0); CALCIUM 7.5 mg/dL (8.8-10.2); CREATININE 1.8 mg/dL (0.5-0.9); PHOSPHORUS 5.1 mg/dL (2.7-4.5)
[2019-01-16] MEDS: PERIDEX MT SCH ×2 (09:34→21:21)
[2019-01-16] MEDS: NS 1,000 ML IV SCH (12:31)
--- NOTE | 2019-01-16 13:12 | HEMO/ONC PROGRESS NOTE ---
DATE: 01/16/2019 SUBJECTIVE: Ms. Duque has now been in the hospital for 18 days. She had a brief episode yesterday afternoon of having discomfort in her mid chest. She was not doing anything exertional. She denies anything that provoked the pain coming on. It occurred for roughly 2 hours in which she was sent to the ICU for monitoring and tests. Her EKG did not show any ST elevations, and there was no rise in her cardiac enzymes. She has subsequently returned to a floor bed for continued monitoring. Dr. Oh discussed with her and her family, and they decided on becoming a DNR yesterday afternoon. She reports feeling okay this morning. She had an episode of slight nausea when she asked the nurses to pause the tube feeding for a couple of hours, which they did. She denies any vomiting or any diarrhea. She had no significant events overnight. OBJECTIVE: Vital signs: Temperature 97.9 degrees, pulse rate 96, respiratory rate 18, blood pressure 123/63, O2 saturation 100% on nasal cannula at 3 L. She was in 4/10 abdominal pain. She had just received pain medication for 9/10 abdominal pain. General: Chronically ill-appearing elderly female, who does not appear to feel well. Respiratory: Respiratory wheezing noted on left side. Occasional cough. Cardiovascular: Normal S1, S2. Abdomen: Positive bowel sounds. Soft. Nondistended. Extremities: Bilateral lower edema of both feet. Neurological: Awake, alert and oriented. LABORATORY: WBC 24.46, hemoglobin 9.7, hematocrit 30.1, platelet count 391, ANC 21.82, ESR 112. Sodium 134, potassium 5.0, creatinine 1.8, calcium 7.5, phosphorus 5.1, albumin 1.9. ASSESSMENT: 1. 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 2. Malignant ascites, status post long-term drainage. 3. Peritonitis on antibiotics per Dr. Stone. 4. Intractable nausea and vomiting. 5. Poor nutrition. PLAN: The patient continues to not feel very well. She understands her prognosis is poor. She is tolerating her tube feeds at 30 mL/hour. However, she does request breaks periodically. Will continue to monitor her nutritional status. She is now a DNR, which was a decision made by her and her family. Her white count is continuing to trend up despite broad- spectrum antibiotics. Her creatinine is also increasing. Dictated by WILFREDO Blanchard for Edmond Oh MD Patient seen and examined. I had a lengthy discussion with the patient and her family members regarding her prognosis. Due to her declining status we have elected to go with comfort measures. In the next day or so she will decide if she would like to stay in the hospital with hospice or go home with hospice. Edmond Oh M.D. cc: Edmond Oh MD [facility]
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
[2019-01-16] MEDS: ZOFRAN IV PRN (23:33)
[2019-01-17] MEDS: TEFLARO 400 MG in NS 250 ML IV SCH (02:14)
[2019-01-17] MEDS: XOPENEX NEB INH SCH ×2 (03:29→11:18)
[2019-01-17] MEDS: HEPARIN SUBQ SCH (04:37)
[2019-01-17] MEDS: NS 1,000 ML IV SCH (05:13)
[2019-01-17] MEDS: HUMALOG SUBQ SCH ×2 (06:12→11:40)
[2019-01-17 07:24] LABS: BASO# 0.03 X1000 (0.0-0.2); BASO% 0.1 % (0.0-0.8); HEMATOCRIT 32.7 % (37.0-47.0); HEMOGLOBIN 10.5 g/dL (12.0-16.0); IMM GRAN% 1.8 % (0.0-0.5); LYMPH# 0.59 X1000 (1.2-3.4); LYMPH% 2.7 % (20.5-51.1); MCH 31.4 PG (27-31); MCHC 32.1 g/dL (33-37); MCV 97.9 FL (81-99); MONO# 1.02 X1000 (0.11-0.59); MONO% 4.6 % (1.7-9.3); MPV 10.1 FL (7.4-10.4); NEUT# 20.04 X1000 (1.4-6.5); NEUT% 90.8 % (42.2-75.2); PLT 426 X1000 (130-400); RBC 3.34 XMIL (4.2-5.4); WBC 22.08 X1000 (4.8-10.8)
[2019-01-17 07:47] LABS: BANDS 6 % (0-1); HYPOCHROM 1+; LARGE PLATELETS 1+; LYMPHS 4 % (21-51); MONO 2 % (1-9); SEGS 88 % (42-75)
[2019-01-17] MEDS: PERIDEX MT SCH (08:21)
[2019-01-17] MEDS: SODIUM CHLORIDE 0.9% INJ SCH (08:23)
[2019-01-17] MEDS: NEXIUM IV SCH (08:23)
--- NOTE | 2019-01-17 12:53 | HEMO/ONC PROGRESS NOTE ---
DATE: 01/17/2019 SUBJECTIVE: Ms. Duque said that she had a great night sleep. She had some nausea in the evening in which she was medicated and slept the whole night through. She had a brief episode of nausea this morning, asked them to cut off her tube feed, and is starting to feel better. She remains pretty weak and does not feel great, but states she does not feel any worse. The patient has decided to go with comfort measures and to go home with hospice. This is a discussion she had with her family. OBJECTIVE: Vital Signs: Temperature 98.6 degrees, pulse rate 106, respiratory rate 17, blood pressure 109/55, O2 saturation 97% on nasal cannula at 3 L. She is in 0/10 pain. General: Chronically ill-appearing female, but does not appear to feel very well. Respiratory: Lungs are generally clear. Some rhonchi on the left side that clears with coughing. Cardiovascular: Normal S1, S2. Rate is tachycardic. Abdomen: Soft, nondistended. Positive bowel sounds. Drainage tube and J-tube is intact. Extremities: Bilateral lower edema of both feet. Neurological: Awake, alert and oriented. No focal motor deficits. LABORATORY: WBC 22.08, hemoglobin 10.5, hematocrit 32.7, platelet count 426, ANC 20.04. ASSESSMENT: 1. 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 2. Malignant ascites, status post long-term drainage. 3. Peritonitis on antibiotics per Dr. Stone. 4. Intractable nausea and vomiting. 5. Poor nutritional status and deconditioning. PLAN: The plan is to move the patient to comfort care only. She has decided to go home with hospice. This will be worked on today. Keep the patient comfortable. Will discuss about stopping most treatments except comfort measures. Dictated by WILFREDO Blanchard for Edmond Oh MD cc: Edmond Oh MD [facility]
--- NOTE | 2019-01-17 13:26 | PROGRESS NOTE ---
DATE: 01/17/2019 SUBJECTIVE: Ms. Duque is contemplating going to hospice, or wants to go to hospice. She is not sure if she wants to go home yet. Right now, she would like to stay at the hospital. Family is in agreement. OBJECTIVE: Vital signs: Temperature 98.5 degrees, pulse 110, respirations 17, blood pressure 113/67. HEENT: Pupils are equal round. Lungs: Clear in all lung guardado. Cardiovascular: Regular rhythm and rate without murmur or S3. Abdomen: Soft. Skin: Warm and dry. ASSESSMENT AND PLAN: 1. 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 2. Intractable nausea and vomiting. Some improvement. 3. Poor nutritional status. Plan to go to hospice for comfort care. cc: Bernardino Keller MD
[2019-01-17] MEDS ORDERED: TYLENOL PR PRN (13:33)
[2019-01-18] MEDS: ZOFRAN IV PRN ×4 (03:07→21:47)
--- NOTE | 2019-01-18 10:29 | PROGRESS NOTE ---
DATE: 01/18/2019 SUBJECTIVE: Ms. Duque is comfortable. She had a decent night. Awake, alert, and oriented x3. Family at the bedside. OBJECTIVE: She remains afebrile, temperature 97.4 degrees, pulse 106, respirations 20, blood pressure 106/74. Pupils are equal and round. Lungs are clear in all lung guardado. Cardiovascular Examination: Regular rhythm and rate without murmur or S3. Abdomen is soft. Skin is warm and dry. Urine output was good. Blood sugars 110, 132, 107. ASSESSMENT/PLAN: 1. 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 She is on hospice with comfort measures. 2. Intractable nausea and vomiting. This is improved. 3. Poor nutritional status. Encourage oral intake. REVIEW OF ORDERS: Getting morphine 2 mg IV q.3 hours p.r.n., Ativan 2 mg IV q.2, and she has a scopolamine patch 1.5 mg topical q.72 hours. cc: Bernardino Keller MD
[2019-01-18] MEDS: MORPHINE IV PRN ×3 (12:33→21:47)
--- NOTE | 2019-01-18 12:37 | HEMO/ONC PROGRESS NOTE ---
DATE: 01/18/2019 CHIEF COMPLAINT/HISTORY OF PRESENT ILLNESS: Ms. Duque states there is not much change from her previous day. She did change her mind from going home with hospice to staying in the hospital with hospice and comfort measures at this time. She denies any significant events overnight. She routinely pauses her tube feeds as she needs to for increase in nausea or discomfort. At this time, she will continue to remain in the hospital as needed. PHYSICAL EXAMINATION: Vital signs: Temperature 97.4 degrees, pulse rate 106, respiratory rate 20, blood pressure 106/74, O2 saturation 96% on 2 L via nasal cannula. She is in 0/10 pain. General exam: A chronically ill-appearing female in no acute distress, well- developed. Skin: Skin is pale, warm, dry. No evidence of ecchymosis, petechiae or lesions. Cardiovascular: Normal S1, S2. Heart rate and rhythm are normal. No murmurs, gallops, or rubs noted. Respiratory: No signs of respiratory distress. Upper lung sounds remain clear. Abdomen: Slightly distended, soft, symmetric and nontender. Bowel sounds are present and normoactive. Lower Extremities: Show mild edema. ASSESSMENT: 1. 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 2. Malignant ascites, status post long-term drainage. 3. Peritonitis on antibiotics per Dr. Stone. 4. Intractable nausea and vomiting. 5. Poor nutritional status and deconditioning. PLAN: The patient will remain on inpatient hospice in the hospital. We will continue to follow along. Please contact us for any questions. Dictated by WILFREDO Blanchard for Edmond Oh MD cc: Edmond Oh MD [facility]
[2019-01-18] MEDS ORDERED: BLISTEX MEDICATED BERRY LIP BALM TOP PRN (18:37)
[2019-01-18] MEDS: TRANSDERM-SCOP TD SCH (21:46)
[2019-01-19] MEDS: ZOFRAN IV PRN (04:33)
[2019-01-19] MEDS: MORPHINE IV PRN ×5 (04:33→23:12)
--- NOTE | 2019-01-19 09:14 | HEMO/ONC PROGRESS NOTE ---
DATE: 01/19/2019 CHIEF COMPLAINT/HISTORY OF PRESENT ILLNESS: Ms. Reyes has now been in the hospital for 21 days. She continues to remain relatively the same. She has waxing and waning nausea that is relieved with Zofran. She has intermittent pain which is easily relieved with morphine. She is on tube feeds at 30 mL an hour which she pauses as needed for increase in nausea or discomfort. No significant events occurred overnight. She is choosing to remain in the hospital with hospice at this time. She remains a Do Not Resuscitate. OBJECTIVE: Vital signs: Temperature 97.5 degrees, pulse rate 95, respiratory rate 16, blood pressure 107/65, O2 saturation 98% on nasal cannula at 2 L. Pain: She is in 0/10 pain. General: Chronically ill-appearing female in no acute distress. Skin: Skin is pale, warm, dry. No evidence of ecchymosis, petechiae, or lesion. Cardiovascular: Normal S1, S2. Heart rate and rhythm are regular. No murmurs, gallops, or rubs appreciated. Respiratory: No signs of respiratory distress. Lung sounds remain clear. Gastrointestinal: Abdomen is slightly distended, soft, symmetric, and nontender. Bowel sounds present and normoactive. Lower Extremities: Mild edema. ASSESSMENT: 1. Metastatic gastric adenocarcinoma with mesenteric and peritoneal metastasis. 2. Malignant ascites, status post long-term drainage. PLAN: The patient is on comfort measures only. We are going to cease running labs on her at this time. She is choosing to remain inpatient on hospice at this time. She remains a Do Not Resuscitate. We will continue to follow along as needed. Please call us if needed over the weekend. Dictated by WILFREDO Blanchard for Edmond Oh MD cc: Edmond Oh MD [facility]
--- NOTE | 2019-01-19 13:56 | PROGRESS NOTE ---
DATE: 01/19/2019 SUBJECTIVE: Mrs. Duque has got a little bit of upper airway secretions and a little lethargic this morning. OBJECTIVE: Vital Signs: Temperature 97.9 degrees, pulse 100 respirations 20, blood pressure 110/70. HEENT: Pupils are equal and round. Lungs: Lungs are clear in all lung guardado. Cardiovascular: Regular rate without murmur or S3. Abdomen: Soft. Skin: Warm and dry. ASSESSMENT AND PLAN: 1. Metastatic gastric adenocarcinoma with mesenteric and peritoneal lymph nodes and metastatic implants. 2. Malignant ascites status post long-term drainage. 3. Peritonitis. 4. Intractable nausea and vomiting. 5. Poor nutrition and deconditioning weakening. She is getting comfort care. Continue present measures. cc: Bernardino Keller MD
[2019-01-20] MEDS: MORPHINE IV PRN ×4 (02:49→22:25)
--- NOTE | 2019-01-20 12:54 | PROGRESS NOTE ---
DATE: 01/20/2019 SUBJECTIVE: Ms. Duque is lethargic. She did not arouse to touch or voice and she has some upper airway gurgling secretions. OBJECTIVE: Vital Signs: Temperature 98.3 degrees, pulse 103, respirations 16, blood pressure 103/56. Pupils are equal and round. Lungs: Clear in all lung guardado. Cardiovascular: Regular rhythm and rate without murmur or S3. Abdomen: Soft. ASSESSMENT AND PLAN: 1. 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 2. Malignant ascites status post a drain for long-term drainage. 3. Peritonitis. 4. Intractable nausea, vomiting. 5. Severe protein calorie malnutrition. She is declining. She has comfort measures only. No change. Appears comfortable. cc: Bernardino Keller MD
[2019-01-20] MEDS: ZOFRAN IV PRN ×2 (16:52→22:25)
[2019-01-20] MEDS: ATIVAN IV PRN (17:35)
[2019-01-21] MEDS: MORPHINE IV PRN ×7 (01:36→19:29)
[2019-01-21] MEDS: ZOFRAN IV PRN ×3 (04:33→16:37)
[2019-01-21] MEDS: ATROPINE 1 % OPHTH SOLN SL PRN ×2 (12:09→17:46)
--- NOTE | 2019-01-21 13:11 | PROGRESS NOTE ---
DATE: 01/21/2019 SUBJECTIVE: Ms. Duque has upper airway secretions, and is not responsive at all. Breathing is agonal. OBJECTIVE: Vital Signs: Temperature 98.6 degrees, pulse 92, blood pressure 84/47, respiratory rate around 20, but very shallow and agonal. Lungs: Scattered rhonchi, upper airway secretions, secretion pooling. Abdomen: Nondistended. ASSESSMENT AND PLAN: 1. Metastatic gastric adenocarcinoma with mesenteric and peritoneal metastasis. 2. Malignant ascites. Has a drain in place. 3. Peritonitis. 4. Intractable nausea and vomiting. 5. Severe protein calorie malnutrition. 6. Comfort measures. I do not expect that she will survive long. cc: Bernardino Keller MD
[2019-01-21] MEDS: ATIVAN IV PRN (15:37)
[2019-01-21 16:04] VITALS: BP 79/45
[2019-01-21] MEDS: TRANSDERM-SCOP TD SCH (19:29)
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
== END 2019-01-21 20:38 | disposition expired | DRG 329 ==
LOC: DIRADM 08:57 → SUATTDRO 08:57 → 4N 09:10 → 1N 01-05 22:47 → ICU 01-15 12:56 → 3N 01-15 15:19
PROVIDERS: ATTEND Emergency Medicine